=== PATIENT | female | born 1970 | race Caucasian/White ===

== ENCOUNTER 2023-09-06 13:48 | Emergency (ER) | payer SELFPAY ==
[2023-09-06 13:51] VITALS: BP 168/110; PULSE 125; RESP 22; TEMP 36.3; O2SAT 98
[2023-09-06 15:21] VITALS: BP 140/88; PULSE 103; RESP 20
--- NOTE | 2023-09-06 16:24 | DI.RAD_ITS ---
Exam(s) XR SHOULDER RT COMPLETE 2+V EXAM: XR SHOULDER RT COMPLETE 2+V CLINICAL HISTORY: pain post abduction, ER injury. TECHNIQUE: 2D digital imaging was performed of the right shoulder. Four images were obtained. AP, Grashey, and Y views were obtained. COMPARISON: No exams were available for comparison FINDINGS: BONES: No acute fracture is present. No bony destructive lesion is seen. JOINTS: No dislocation present. Degenerative changes are seen at the acromioclavicular joint. The gl enohumeral joint is well maintained. SOFT TISSUE: Well corticated osseous densities are seen adjacent to the acromioclavicular joint. The se are old. IMPRESSION: No acute fracture or dislocation. DATA REPOSITORY: RADIATION DOSE DELIVERED:
[2023-09-06] MEDS: Acetaminophen 500 MG TAB 1000 MG PO (16:50)
[2023-09-06] MEDS: Ketorolac 30 MG/ML VIAL IM (16:50)
--- NOTE | 2023-09-06 17:05 | W.ED.GENAD ---
Discharge Plan Disposition Patient Disposition: Home Condition: Stable Discharge Details Clinical Impression: Rotator cuff injury, Injury of right shoulder Primary Care Provider: Unknown,Unknown ED Provider: Zac Diego Home Meds and New Rx's Prescriptions: Continued duloxetine [Cymbalta] 20 mg capsule,delayed release(DR/EC) 40 mg PO DAILY lisdexamfetamine [Vyvanse] 50 mg capsule 50 mg PO DAILY trazodone 50 mg tablet 50 mg PO DAILY Rexulti 1 mg tablet 1 mg PO DAILY Discharge Instructions Instructions: Rotator cuff injury Additional Instructions: Please take acetaminophen (tylenol) - 650mg every 6 hours by mouth as needed for pain. Use sling over the next 1 to 2 weeks. Be sure to remove your arm from sling and perform pendulum exercises as discussed twice today. Please contact orthopedics to arrange follow-up. Return to the ER immediately for any worsening or new concerning symptoms. Stand Alone Forms: Work Release Referrals: [facility] [Provider Group] Discharge Data Discharge Date/Time-TO BE ENTERED AT DEPARTURE: 09/06/23 17:33 HPI General Mode of arrival: ambulatory. Date/Time Provider Initiated Documentation: 09/06/23 14:37. Limitations to Documentation: no limitations. Information obtained by: patient. HPI Narrative: 53-year-old female presents with right shoulder pain after falling forward and catching herself with her arm in a posterior hyperextended position. Pain is moderate and worse with any movement of the arm. No associated numbness or tingling. No other injury. Related Data Home Medications ?Medication ?Instructions ?Recorded ?Confirmed brexpiprazole 1 mg tablet (Rexulti) 1 mg PO DAILY 09/06/23 09/06/23 duloxetine 20 mg capsule,delayed 40 mg PO DAILY 09/06/23 09/06/23 release (Cymbalta) lisdexamfetamine 50 mg capsule 50 mg PO DAILY 09/06/23 09/06/23 (Vyvanse) trazodone 50 mg tablet 50 mg PO DAILY 09/06/23 09/06/23 Allergies Allergy/AdvReac Type Severity Reaction Status Date / Time perphenazine (From Trilafon) Allergy Severe Anaphylaxis Verified 09/06/23 13:59 prochlorperazine (From Allergy Severe Anaphylaxis Verified 09/06/23 13:59 Compazine) General Stated Complaint: Orthopedic JOHN: 4 Review of Systems Musculoskeletal Musculoskeletal: Reports as per HPI Exam Resp Auscultation: clear to auscultation bilaterally, no rales, no rhonchi and no wheezes Cardio Rate: regular rate and not tachycardic Rhythm: regular rhythm Back/Spine/Pelvis Cervical Spine: cervical ROM normal, No cervical spinal tenderness and No step off deformity Thoracic/Lumbar Spine: No thoracic spinal tenderness Neuro General: patient alert, patient awake, patient oriented x3 and tone normal Other: Distal right upper extremity sensation and motor intact Extrem General: no edema Right upper extremity: no joint enlargement, shoulder/upper arm Details: tenderness (Posterior shoulder) and abnormal ROM Details: pain with active ROM Details: in ABduction and in extension and elbow/forearm Details: normal to inspection Course Vital Signs Vital signs: Vital Signs Temperature 36.3 C L 09/06/23 13:51 Pulse 125 H 09/06/23 13:51 Respiratory Rate 22 09/06/23 13:51 Blood Pressure 168/110 H 09/06/23 13:51 Pulse Oximetry 98 09/06/23 13:51 Temperature 36.3 C L 09/06/23 13:51 Temperature Source Temporal Artery Scan 09/06/23 13:51 Pulse 103 H 09/06/23 15:21 Respiratory Rate 20 09/06/23 15:21 Respiratory Effort Normal 09/06/23 13:57 Blood Pressure 140/88 09/06/23 15:21 Blood Pressure Mean 105 09/06/23 15:21 Blood Pressure Position Sitting 09/06/23 13:51 Pulse Oximetry 98 09/06/23 13:51 Oxygen Delivery Method Room Air 09/06/23 13:51 Oxygen Flow Rate 0 09/06/23 13:51 Pain Level 8 09/06/23 16:50 Medical Decision Making 53-year-old female presents with right shoulder pain after falling forward and catching herself with her arm in a posterior hyperextended position. Considered fracture. X-ray of the shoulder was not reviewed and interpreted by radiology: No acute fracture or dislocation. Suspect rotator cuff tear. Patient was given Tylenol and Toradol IM. Plan for sling and will have her followup with orthopedics. Quality:SDOH Health Related Social Needs: No Data to Display PFSH All Active Problems (Updated 09/06/23 @ 17:16 by Zac Diego MD) Injury of right shoulder (Acute) Rotator cuff injury (Acute) Social History Smoking/Tobacco Use Status: Never Smoking risk assessment performed?: Yes Alcohol Intake: never Drug use: Never Substance use type: does not use
== END 2023-09-06 17:33 | disposition home or self-care (01) ==
PROVIDERS: Emergency Provider Student in an Organized Health Care Education/Training Program
DX: S46.091A Other injury of muscle(s) and tendon(s) of the rotator cuff of right shoulder, initial encounter (principal); W10.9XXA Fall (on) (from) unspecified stairs and steps, initial encounter
CPT/HCPCS: 96374; 99284; 73030; 99283; J1885

== ENCOUNTER 2023-11-09 01:10 | Outpatient (CLI) | payer OTHER, SELFPAY ==
--- NOTE | 2023-11-09 07:43 | DI.MRI_ITS ---
Exam(s) MR UPPER JOINT RT WO EXAM: MR UPPER JOINT RT WO CLINICAL HISTORY: R SHOULDER INJURY, ? RTC TEAR,M75.101. TECHNIQUE: Multiplanar multisequence MRI was performed. COMPARISON: Plain films 06 September 2023 FINDINGS: BONES: There is some increased signal in the anterolateral aspect of the humeral head which could rep resent a bone contusion versus degenerative changes. Spurring is noted on plain films. JOINTS:The acromioclavicular joint shows moderate spurring. The glenohumeral joint shows a small juan daniel unt of fluid. TENDONS: Supraspinatus: Abnormal thickening of the supraspinatus tendon. Focal full-thickness tear seen anter iorly. Infraspinatus: Unremarkable. Subscapularis: Unremarkable. Teres Minor: Unremarkable. Biceps and Howe: Not well seen. Fluid seen extending along tendon. MUSCLES: Unremarkable. GLENOID LABRUM: Unremarkable on this noncontrast examination. SOFT TISSUES: Unremarkable. OTHER: Subacromial and subdeltoid bursae do not show significant fluid. Small amount of fluid in hairston b coracoid region.. IMPRESSION: Full-thickness tear of the anterior supraspinatus tendon. Biceps tendon is not well seen. Suspect tear. DATA REPOSITORY:
== END 2023-11-09 01:30 ==
LOC: DI 01:10
PROVIDERS: Visit Provider Student in an Organized Health Care Education/Training Program
DX: M75.121 Complete rotator cuff tear or rupture of right shoulder, not specified as traumatic (principal)
CPT/HCPCS: 73221

== ENCOUNTER 2023-11-25 11:55 | Day surgery (SDC) | payer OTHER, SELFPAY ==
[2023-11-25] VITALS (20 sets, daily range): BP systolic 105–142; BP diastolic 55–117; PULSE 65–90; RESP 7–131; TEMP 36.1–36.8; O2SAT 87–98; BMI 48.6
--- NOTE | 2023-11-25 07:15 | PDOC.DSDIS_ITS ---
Date of service: 11/25/23 Time of Service: 15:00 Discharge Plan Disposition Patient Disposition: Home Condition: Stable Discharge Details Attending Provider: Constantine Reese Primary Care Provider: Patricia Mckay Home Meds and New Rx's Prescriptions: New tramadol 50 mg tablet 50 mg PO Q8H PRN (Reason: severe pain) Qty: 9 0RF Continued metoprolol tartrate 25 mg tablet 12.5 mg PO BID duloxetine [Cymbalta] 20 mg capsule,delayed release(DR/EC) 40 mg PO DAILY lisdexamfetamine [Vyvanse] 50 mg capsule 50 mg PO DAILY Rexulti 1 mg tablet 1 mg PO DAILY ondansetron 4 mg tablet,disintegrating 4 mg PO DIRECTED Patient Comments: dissolve 1 tablet on top of the tongue every 8 hours if needed for nausea and vomiting Discharge Instructions Additional Instructions: Surgery: Right shoulder arthroscopy with rotator cuff repair (subscapularis & supraspinatus, extensive debridement, subacromial decompression, and open biceps tenodesis (proximal rupture repair). Activity: For 6 weeks, you should keep your arm at your side in a neutral position at all times except for physical therapy. Do not try to lift or raise your arm using your own muscles. You should use the sling whenever you are out of the house. At home it is best to remove the sling and rest the arm on a pi llow at your side or support the operative side with your other hand. You may allow the arm to dangle at your side. A physical therapy prescription will be sent electronically to begin in about 3 weeks. CONSERVATIVE protocol. Prescriptions: Avoid NSAIDs as best possible given history gastric bypass surgery Tramadol 50 mg take 1 every 8 hours as needed for severe pain You may use [id number] Tylenol (acetaminophen) as needed for mild to moderate pain. These pain medications may be taken all at once or in different combinations as needed. Also, recommend Colace (docusate) as a stool softener as surgery and pain medicine cause constipation. Dressings: Remove shoulder bandage after 3 days. Leave the sticky Steri-Strips in place until they fall off or remove them after you shower. Cover the incisions with Band-Aids or leave them open to air. The biceps bandage (inside upper arm) is glued on separately. You may leave this one on a few days longer if it is difficult to remove. There is also glue underneath this bandage that can be left in place until it peels off. You may shower after 5 days. Follow-up: 10-[address] Reese You may take off the leg compression stockings this evening at home. You may also leave them on a few days longer if you have a history of leg swelling or edema. Let us know right away if you develop any redness, drainage, fevers, chest pain, or trouble breathing. Do not drink alcohol or drive for at least 24 hours after anesthesia. Please call the office during business hours with any questions or concerns. Stand Alone Forms: Anesthesia Discharge Inst., Anes.Nerve Block Instructions, Dimas Ortiz (DSU) Referrals: Constantine Reese MD [ [facility]YSICIAN] - 12/08/23 2:00 pm Discharge Orders Discharge Orders: Discharge Order (Routine); Ordered 11/25/23 Ordered By: Staci Matos DS: Diagnosis Discharge Diagnosis (1) Right rotator cuff tear: Status: Acute (2) Rupture of right proximal biceps tendon: Status: Acute
--- NOTE | 2023-11-25 12:25 | ROE_ITS ---
Date of service: 11/25/23 Time of Service: 13:30 Operative Note Operative Note DATE OF PROCEDURE: 11/25/23 PRE-OP DIAGNOSIS: Right: 1. Rotator cuff tear 2. Proximal biceps rupture 3. Bursitis POST-OP DIAGNOSIS: same PROCEDURE: Right: 1. Rotator cuff repair, CPT# 33918. This involved repair of the subscapularis and supraspinatus using anchors and sutures to reattach the rotator cuff back to the footprint of the lesser and greater tuberosity. 2. Open biceps tenodesis, CPT# 95454. This involved reattaching the ruptured long head of the biceps tendon to the proximal humerus in the sub-pectoral area of the bicipital groove at the correct tension. 3. Extensive debridement, CPT# 85789. This involved using arthroscopic hand instruments, power instruments, and radiofrequency instruments to debride significant biceps tendon intra-articular remnant, anterior labral fraying and small parameniscal cyst, release anterior capsular adhesions and M GH L, mild lesser and bicipital groove chondromalacia, and rotator interval synovitis working within the glenohumeral joint anteriorly, superiorly and posteriorly. 4. Subacromial decompression with partial acromioplasty, CPT# 66901. This in volved using arthroscopic power instruments and a radiofrequency wand to complete a bursectomy and smooth the undersurface of the acromion. The assistant inventory manager was medically required in order to help assist in techniques above, which require positioning the arm, holding the arthroscope, and manipulating multiple instruments and sutures at the same time. This cannot be done without the help of an experienced assistant inventory manager. SURGEON: Constantine Reese ROLLER MAKER: Staci Matos ANESTHESIA TYPE: Local By Surgeon, General LMA/ETT and Primary Nerve Block Refer to Anesthesia Record ESTIMATED BLOOD LOSS: 30 PATHOLOGY: none sent COMPLICATIONS: None Patient was transported to: PACU Patient's condition: stable Implants: Arthrex: 4.75mm SwiveLocks x 1, 5.5mm SwiveLocks x 1, and unicortical Proximal Biceps Tenodesis Button Indications: The patient was diagnosed with the above conditions and appropriately indicated for surgical intervention. Please see complete medical record for details. Findings: Exam under anesthesia: Full range of motion, palpable proximal biceps rupture about the level of the pectoralis major tendon Glenohumeral joint: Significant synovitis, retracted high-grade upper half subscapularis tear, degeneration between delaminated tear layers, retracted M GH L, significant biceps tendon stump intra-articular frayed torn segment, anterior superior labral fraying with anterior small paralabral cyst decompressed indirec tly, intact articular rotator cuff Subacromial space: Significant hemorrhagic bursitis, no bursal rotator cuff defect?concealed high-grade interstitial delamination Procedure Description: In the operating room, general anesthesia was induced. Bilateral shoulders were examined. The patient was positioned in the beachchair position. All bony pro minences were well-padded. Preoperative antibiotics were administered. The shoulder was prepped and draped in the usual sterile fashion. The correct patient, procedure, and side of the procedure were all verified prior to incision. 15 cc of 0.25% bupivacaine with epinephrine was infiltrated about a 5 cm longitudinal incision at the inferior margin of the pectoralis major localized over the long head of the biceps tendon. Blunt and sharp dissection were used to expose the tendon in the bicipital groove. The tendon was brought out of the wound and kept off the skin on top of a blue towel. The correct location for sub-pectoral fixation was localized, prepped with a rasp, and then drilled with a 3.2 mm drill pin in a unicortical fashion. Using a fiber loop suture the tendon was prepped from the musculotendinous junction a few centimeters proximal. The excess tendon was amputated. The free suture ends were then passed through the unicortical button implant. The drill pin was removed and the implant was placed into the humeral intramedullary canal. The button was flipped and the sutures were tensioned bringing the tendon down to bone. Tension and fixation were then tested and found to be appropriate. The suture tails were brought on either end of the tendon and tied compressing tendon to bone. The wound was copiously irrigated with normal saline and packed with a moist monitor for later closure. Starting through the posterior portal a standard complete diagnostic arthroscopy was performed of the glenohumeral joint including inspection of the long head of the biceps, anterior and superior labrum, subscapularis tendon, supraspinatus and infraspinatus tendons, and axillary recess. The glenoid and humeral head cartilage as well as the posterior labrum were inspected from an anterior viewing portal. Significant findings and interventions noted above. Of note, there was a remarkable biceps tendon intra-articular segment torn and ruptured still present which was debrided. The subscapularis tear was lightly debrided and excursion confirmed to the lesser tuberosity without undue tension or limiting external rotation. The [facility] eval and capsulitis was released. I suture tape FiberLink was placed in the upper lateral portion in cinch mode used for traction and then in the body of the tear a FiberTape horizontal mattress was placed. All 3 tails were then secured to a SwiveLock anchor 4.75 mm in the lesser tuberosity. The repair had good reduction and stability through range of motion without restricted external rotation tested through 30 degrees. Starting through the posterior portal, the arthroscope was directed into the subacromial space. A lateral 50 yard line lateral portal was created. A combination of power instruments and a radiofrequency ablator were used to debride bursitis anteriorly, posteriorly, and laterally as well as expose and smooth bone spurring on the undersurface of the acromion. The coracoacromial ligament was partially released. The bursectomy was completed viewing laterally and working from posteriorly and the rotator cuff was thoroughly inspected with findings noted above. Significant challenges with visualization given hemorrhagic bursitis and very diminutive shoulder space despite large arm soft tissue envelope. As best possible, the high-grade supraspinatus defect was localized within the tendon concealed interstitial as it was not localized on the articular or bursal sides. It was elevated from laterally to preserve tendon length and then indirectly debrided within the tendon using mechanical and hand instruments. The self retrieving scorpion passer was used then to place a widely spaced inverted horizontal mattress FiberTape and more centrally ripstop FiberLink suture tape in cinch mode. All Fritcher suture tails were brought out laterally and attempted secured to a 4.75 mm swivel anchor. The anchor deployed somewhat poorly and it seemed to collapse and find a subchondral bone cyst. It was reasonably secured, but on more vigorous testing did not have adequate fixation strength. To avoid early repair failure, the sutures were withdrawn with the suture anchor eyelet and then the anchor itself was secured and removed in entirety. The arm was rotated and a more anterior spot laterally was cleared with a trajectory away from the bone cyst and previous suture anchor placement. The undersized punch was used again this time for an oversized anchor with better bone quality with the repair suture tails carefully ensured no undue tension and secured to a 5.5 mm SwiveLock anchor. One of the sliding repair suture was then shuttled posteriorly throug the rotator cuff adjacent to the initial suture hole and cyst and secured with SMC arthroscopic knot somewhat covering the hole and defect with this posterior rotator cuff and some small avulsed bone underneath. The repair was stable through motion and testing. The anchor was not compromised in any way by the previous suture hole. The shoulder was drained of arthroscopic fluid. All portal sites were copiously irrigated. These incisions were closed using 3-0 Monocryl in a buried fashion and then covered with Mastisol, Steri-Strips, Xeroform, dry gauze, and ABDs. The arm was copiously irrigated and then the biceps incision subcutaneous tissue was closed using 3-0 Monocryl in a buried interrupted fashion. Skin was closed using 3-0 Monocryl in a buried subcuticular running fashion. Skin glue was applied over the incision. Mastisol was applied about the incision. The incision was covered with Telfa, gauze, and covered with a Tegaderm dressing. The dressings were covered and secured with Medipore tape. The operative extremity was placed into a sling for immobilization. The patient awoke from anesthesia without complication and was transferred to the recovery room in a stable condition.
--- NOTE | 2023-11-25 12:34 | W.ANESPRE ---
General Info Date of Service Date Performed: 11/25/23 Height: 4 ft 11 in Weight: 109.3 kg Body Mass Index (BMI): 48.6 Surgical Procedure: Operation Date: 11/25/23 11:40 Proposed Procedure Side Surgeon p Shoulder Rotator Cuff Arthroscopic w/Extensive Debridement, Subacromial Decompression, Possible Open Biceps Tenodesis Right Constantine Reese MD Actual Procedure Side Surgeon p Shoulder Rotator Cuff Arthroscopic w/Extensive Debridement, Subacromial Decompression, Possible Open Biceps Tenodesis Right Constantine Reese MD Meds Allergies and Home Medications Allergies Allergy/AdvReac Type Severity Reaction Status Date / Time perphenazine (From Trilafon) Allergy Severe Anaphylaxis Verified 11/25/23 12:20 prochlorperazine (From Allergy Severe Anaphylaxis Verified 11/25/23 12:20 Compazine) Home Medication ?Medication ?Instructions ?Recorded brexpiprazole 1 mg tablet (Rexulti) 1 mg PO DAILY 09/06/23 duloxetine 20 mg capsule,delayed 40 mg PO DAILY 09/06/23 release (Cymbalta) lisdexamfetamine 50 mg capsule 50 mg PO DAILY 09/06/23 (Vyvanse) metoprolol tartrate 25 mg tablet 12.5 mg PO BID 10/06/23 ondansetron 4 mg disintegrating 4 mg PO DIRECTED 11/23/23 tablet Current Visit Medications: Current Medications Generic Name Dose Route Start Last Admin Trade Name Freq PRN Reason Stop Dose Admin Ringer's Solution 1,000 mls @ 30 mls/hr 11/25/23 06:00 IV 11/25/23 23:59 INFUSION ALEXANDER Cefazolin Sodium 3,000 mg/ 100 mls @ 200 mls/hr 11/25/23 06:00 Sodium Chloride IV 11/25/23 23:59 PREOP ALEXANDER Tranexamic Acid/Sodium Chloride 1,000 mg in 100 mls @ 600 mls/hr 11/25/23 06:00 IVPB 11/25/23 23:59 PREOP ALEXANDER IV Miscellaneous Supplies 1 each 11/25/23 06:00 Iv Access IV 11/25/23 23:59 DIRECTED ALEXANDER Oxycodone HCl 0 mg 11/25/23 07:15 Oxycodone 5 Mg Tab PO 12/25/23 07:14 Q3H PRN PRN Pain Sodium Chloride 0 ml 11/25/23 06:00 Normal Saline Flush 10 Ml Syr IV 11/25/23 23:59 PRN PRN Sodium Chloride 0 ml 11/25/23 06:00 Normal Saline 10 Ml Vial IJ 11/25/23 23:59 DIRECTED PRN Sterile Water 0 ml 11/25/23 06:00 Water,Injection,Sterile 10 Ml Vial IJ 11/25/23 23:59 DIRECTED PRN PFSH Active Problems Active Problems: Problem Status Onset Code Right rotator cuff tear Acute 09/06/23 M75.101 Medical History Medical History Anxiety ADD (attention deficit disorder) Depression Tachycardia Surgical History Surgical History Hx of section x2 Hx of exploratory laparotomy Hx of cholecystectomy History of surgery on wrist Hx of tonsillectomy Tobacco Smoking/Tobacco Use Status: Never Alcohol Alcohol Intake: current Alcohol intake frequency: a few times a month Substance Use Substance use: Never Substance use type: does not use Vital Signs and Lab Results Vital Signs Comment Vital Signs Comment:: Temp Pulse Resp BP Pulse Ox 36.1 C L 87 16 139/85 98 11/25/23 12:04 11/25/23 12:04 11/25/23 12:04 11/25/23 12:04 11/25/23 12:04 Lab Results Blood Type / Crossmatch: No Data to Display Complete Blood Count: No Data to Display Complete Metabolic Panel: No Data to Display Liver Function Panel: No Data to Display Coagulation Panel: No Data to Display Cardiac Panel: No Data to Display Arterial Blood Gas: No Data to Display Venous Blood Gas: No Data to Display Pancreas Panel: No Data to Display Thyroid Panel: No Data to Display Infectious Disease: No Data to Display Blood Cultures: No Data to Display Toxicology Panel: No Data to Display Panel: No Data to Display Anesthesia Assessment and Plan Anesthesia History Personal History: No History of Anesthesia Complications Family History: No Family History of Anesthesia Complications Exercise Tolerance Exercise Tolerance: Metabolic Equivalents>4 Pertinent Negatives Pertinent Negatives: No Symptoms of GERD, No Major Cardiovascular Symptoms or Complaints (Hx of Tachycardia at rest, started on metoprolol with improvement), No Major Pulmonary Symptoms or Complaints and No History of CVA/TIA Cardiac & Pulmonary Exam Cardiac Exam: Normal S1/S2 Heart Sounds Pulmonary Exam: Clear Bilateral Breath Sounds Implantable Cardiac Device Does patient have a Pacemaker or an ICD?: No Airway Exam Known Difficult Airway: No Mallampati Class: 1 Mouth Opening: Normal (> 3cm) Thyromental Distance: Greater than 3 cm Facial Hair: Full [place] Neck Range of Motion: Full ROM Neck Circumference: Thick Teeth Condition: Generalized Poor Dentition Airway Comments: multiple missing teeth, mainly 01/19, multiple cracked teeth. Generally poor dentition ASA Classification ASA Score: ASA 3 Emergency Case?: No NPO Status NPO Status: NPO Clears >2 hours, Solids >8 hours Status Status: Not Relevant due to Medical History Anesthesia Plan Resuscitation Status: Full Code Anesthesia Technique: General Anesthesia Airway Planned: Endotracheal Tube Monitors Used: Standard Monitors and SedLine
[2023-11-25] MEDS: Lactated Ringers 1,000 ML 30 ML IV ×2 (13:25→18:39)
--- NOTE | 2023-11-25 13:59 | W.ANESNERVE ---
Nerve Block Single Injection Procedure Date and Time Date Performed: 11/25/23 Procedure Start: 13:32 Location Where Procedure Performed Procedure Location: Day Surgery Unit Reason Performed: Postoperative Analgesia Requesting Provider: Constantine Reese Timeout Performed Timeout Performed: Yes Monitoring Used ECG, Blood Pressure, SpO2 and See EMR for corresponding vital signs Sterility Sterility: Hand Hygiene, Surgical Cap, Surgical Mask, Sterile Gloves, Eye Protection and Chlorhexidine Sedation Given During Procedure Sedation Given (Indicate Dose Given): Versed IV Dose:: 5mg IVP Patient Mental Status Patient Mental Status: Sedate with meaningful communication Nerve Block 1st Nerve Block: Laterality: Right Block Type: Interscalene Ultrasound Image Saved?: Yes Needle / Catheter Used: 80mm SonoPlex II Local Anesthetic Bolus (Indicate Dose Given): Lidocaine used for local infiltration of skin, Bupivacaine 0.5% Dose:: 0.5%/10cc (50mg) and Exparel Dose:: 1.3%/10cc (133mg) Additives (Indicate Dose Given): Epinephrine to make 1:200,000 (5mcg/ml) Dose:: 100mcg and Decadron Dose:: 10mg PF Ultrasound: Sterile probe cover and gel used Nerve Stimulator: Not Used Paresthesia: None Procedure Tolerated: No Complications and Patient tolerated well Procedure Outcome: Successful Performed By: Tomer Almeida
[2023-11-25] MEDS: ceFAZolin 3,000 MG in Normal Saline 100 ML 200 MG IV (14:03)
[2023-11-25] MEDS: TRANEXAMIC ACID/SOD. CHL. 1,000 MG/100 ML BAG 600 MG IVPB (14:16)
[2023-11-25] MEDS: Bupivacaine 0.25% Pres-Free W/EPI 30 ML VIAL (15:13)
[2023-11-25] MEDS: EPINEPHrine 10 MG/10 ML ML (17:40)
--- NOTE | 2023-11-25 17:57 | W.ANESPOSTOP ---
Postoperative Evaluation Date, Time and Location Date Performed: 11/25/23 Time Performed: 17:57 Patient Location: PACU Vital Signs Most Recent Imported Vital Signs: Most Recent Vital Signs Temp Pulse Resp BP Pulse Ox 36.4 C L 73 17 126/66 93 11/25/23 17:42 11/25/23 17:51 11/25/23 17:51 11/25/23 17:51 11/25/23 17:51 Pain Score Most Recent Pain Score: Most Recent Pain Score Pain Level 0 11/25/23 13:00 Assessment Mental Status: Arousable with meaningful communication Airway and Respiratory Function: Patent airway with normal (patient baseline) respiratory exam Cardiovascular Function: Hemodynamically Stable Hydration Status: Adequately Hydrated Nausea & Vomiting: No Nausea or Vomiting Pain: Pt. Denies Any Pain Peripheral Nerve Block: Patient did not receive a nerve block
--- NOTE | 2023-11-25 18:48 | W.PC.ACHO ---
Registration Status: Primary Language: Preferred Language: Medical / Surgical History (Last Reviewed 11/25/23 @ 12:12 by Chyna Amador RN) Anxiety ADD (attention deficit disorder) Depression Tachycardia (Last Reviewed 11/25/23 @ 12:12 by Chyna Amador RN) Hx of section Hx of exploratory laparotomy Hx of cholecystectomy History of surgery on wrist Hx of tonsillectomy Most Recent Vital Signs Temperature 36.6 C 11/25/23 18:15 Temperature Source Temporal Artery Scan 11/25/23 13:00 Pulse 69 11/25/23 18:15 Pulse Rhythm Regular 11/25/23 12:04 Pulse 72 11/25/23 18:15 Respiratory Rate 7 L 11/25/23 18:15 Respiratory Depth Normal 11/25/23 12:04 Blood Pressure 142/78 H 11/25/23 18:15 Blood Pressure Mean 96 11/25/23 18:15 Blood Pressure Position Left Lateral 11/25/23 13:00 Pulse Oximetry 91 L 11/25/23 18:15 Respiratory End-tidal CO2 21 11/25/23 18:15 Oxygen Delivery Method Nasal Cannula 11/25/23 18:15 Oxygen Flow Rate 2 11/25/23 18:15 Pain Level 0 11/25/23 18:15 Comment Pt transferred to OR via stretcher by Jaqueline CARVER and Moni ROMERO at 1351 Pt denied tinnitus and metallic taste in mouth pre and post procedure. 11/25/23 13:00 Allergies perphenazine (From Trilafon) Allergy (Severe, Verified 11/25/23 12:20) Anaphylaxis prochlorperazine (From Compazine) Allergy (Severe, Verified 11/25/23 12:20) Anaphylaxis Active Medications Generic Name Dose Route Start Last Admin Trade Name Freq PRN Reason Stop Dose Admin Ringer's Solution 1,000 mls @ 30 mls/hr 11/25/23 06:00 11/25/23 18:39 IV 11/25/23 23:59 30 mls/hr INFUSION ALEXANDER Administration Cefazolin Sodium 3,000 mg/ 100 mls @ 200 mls/hr 11/25/23 06:00 11/25/23 14:33 Sodium Chloride IV 11/25/23 23:59 Infused PREOP ALEXANDER Infusion Tranexamic Acid/Sodium Chloride 1,000 mg in 100 mls @ 600 mls/hr 11/25/23 06:00 11/25/23 14:26 IVPB 11/25/23 23:59 Infused PREOP ALEXANDER Infusion IV IV Catheter Type [Left Peripheral IV Antecubital] IV Catheter Gauge [Left 20 Antecubital] Diet Orders Category Date Time Status Regular/Normal [DIET] Nutrition 11/25/23 Dinner Active [id number] Documentation POC Urine Test Start: 11/25/23 12:20 Freq: Status: Active Protocol: Activity Type Activity Date Activity User E-sign Co-sign Detail Recorded Client Recorded Date Recorded By Document 11/25/23 12:59 YOJANA [id number] 11/25/23 12:59 YOJANA Intake and Output - 24 Hour Total 11/16/23 14:54 thru 11/25/23 18:39 Intake Total 1038 Balance 1038 Weight 109.3 kg Intake: IV 1038 Other: Emesis Description None v v v v v v v v v Sending and/or Receiving Nurses: Please use comment section below to note any information pertinent to the patient hand-off not included above. Information / Comments: Report taken from PACU Nurse Jaqueline, patient is post op right shoulder arthoscopy rotator cuff repair, open biceps tendonid. Had general anesthesia w/ ETT., Pt is fully awake transferred to bed self. CSMT is wnl. All questions asked. Report received from:
== END 2023-11-25 20:00 | disposition home or self-care (01) ==
LOC: SUR 18:14 → MS 18:53
PROVIDERS: PCP Family Medicine; Visit Provider Student in an Organized Health Care Education/Training Program
PROC: (CPT 29827; principal; 2023-11-25 13:15)
DX: M75.101 Unspecified rotator cuff tear or rupture of right shoulder, not specified as traumatic (principal); S46.211A Strain of muscle, fascia and tendon of other parts of biceps, right arm, initial encounter; X58.XXXA Exposure to other specified factors, initial encounter; M75.51 Bursitis of right shoulder
CPT/HCPCS: 23430; 29827; 29823; 29826; 76942; C9290; J0171; J0665; J0690; J1100; J1885; J2250; J2371; J2405; J2704

== ENCOUNTER 2023-11-28 02:47 | Emergency (ER) | payer OTHER, SELFPAY ==
--- NOTE | 2023-11-28 02:45 | RT.EKG_ITS ---
APPROVED REPORT Exam: Resting ECG Reason for Exam: chest pain Patient Location: E HR:87 bpm ECG Measurements Heart Rate 87 AXIS OR 148 P 56 QRSd 76 QRS 11 QT 331 T 35 QTc 399 Conclusion Sinus rhythm...normal P axis, V-rate 60- 99 Normal Electrocardiogram
[2023-11-28 02:50] VITALS: BP 126/74; PULSE 92; RESP 20; TEMP 36.6; O2SAT 96
[2023-11-28 02:54] VITALS: BP 126/74; PULSE 92; RESP 18; RESP 20; TEMP 36.6; O2SAT 96
--- NOTE | 2023-11-28 03:01 | W.ED.GENAD ---
Discharge Plan Disposition Patient Disposition: Home Condition: Good Discharge Details Clinical Impression: Chest discomfort Primary Care Provider: Patricia Mckay ED Provider: Adan Woodard Meds and New Rx's Prescriptions: Continued metoprolol tartrate 25 mg tablet 12.5 mg PO BID duloxetine [Cymbalta] 20 mg capsule,delayed release(DR/EC) 40 mg PO DAILY lisdexamfetamine [Vyvanse] 50 mg capsule 50 mg PO DAILY Rexulti 1 mg tablet 1 mg PO DAILY ondansetron 4 mg tablet,disintegrating 4 mg PO DIRECTED Patient Comments: dissolve 1 tablet on top of the tongue every 8 hours if needed for nausea and vomiting tramadol 50 mg tablet 50 mg PO Q8H PRN (Reason: severe pain) Qty: 9 0RF Discharge Instructions Instructions: Chest Pain, Adult ED Additional Instructions: You were seen for chest discomfort and shortness of breath. Your vital signs, exam, EKG, laboratory studies, CT scan are all reassuring. You should use the incentive spirometer as previously instructed unless you are active throughout the day. Follow-up with primary care as well as your postoperative orthopedic appointment. Return to ED for fever, new or worsening pain, worsening shortness of breath, other concerns. Referrals: Patricia Mckay [Primary Care Provider] - [facility] General Mode of arrival: ambulatory. Date/Time Provider Initiated Documentation: 11/28/23 03:01. Limitations to Documentation: no limitations. Information obtained by: patient and RN notes reviewed. HPI Narrative: Patient presents to the ED with complaint of chest pain/achiness that is somewhat pleuritic in nature as well as shortness of breath. Patient underwent rotator cuff/bicep tendon surgery on . She reports having some mild shortness of breath and cough on return home. She also noticed a little bit of chest discomfort. As her nerve block wore off she is now having more chest discomfort and shortness of breath. Cough is unchanged. No other URI type symptoms. No fever. No leg pain or leg swelling more so than usual. No abdominal pain or vomiting. Chest pain is not localized and feels diffuse with radiation into the back. Came in tonight that seems to be getting worse. Related Data Home Medications ?Medication ?Instructions ?Recorded ?Confirmed brexpiprazole 1 mg tablet (Rexulti) 1 mg PO DAILY 09/06/23 11/28/23 duloxetine 20 mg capsule,delayed 40 mg PO DAILY 09/06/23 11/28/23 release (Cymbalta) lisdexamfetamine 50 mg capsule 50 mg PO DAILY 09/06/23 11/28/23 (Vyvanse) metoprolol tartrate 25 mg tablet 12.5 mg PO BID 10/06/23 11/28/23 ondansetron 4 mg disintegrating 4 mg PO DIRECTED 11/23/23 11/28/23 tablet tramadol 50 mg tablet 50 mg PO Q8H PRN severe pain #9 11/25/23 11/28/23 tabs Previous Rx's ?Medication ?Instructions ?Recorded tramadol 50 mg tablet 50 mg PO Q8H PRN severe pain #9 11/25/23 tabs Allergies Allergy/AdvReac Type Severity Reaction Status Date / Time perphenazine (From Trilafon) Allergy Severe Anaphylaxis Verified 11/28/23 02:53 prochlorperazine (From Allergy Severe Anaphylaxis Verified 11/28/23 02:53 Compazine) General Stated Complaint: SOB JOHN: 3 Review of Systems Narrative: Per HPI Exam Narrative Exam Narrative: Const: Obese female in NAD. VS per triage. HEENT: NC/AT. Normal facial exam. Neck: Supple. Trachea midline. Lungs: Seems tachypneic but no increased work of breathing. Lungs are clear. Cor: RRR without murmur. Good radial pulses. GI: Soft/ND/NT. Neuro: A+O x 3. Normal speech, mentation, gait. Cranial nerves II - XII grossly intact. No gross motor or sensory deficit. Course Vital Signs Vital signs: Vital Signs Temperature 97.8 F 11/28/23 02:50 Pulse 92 H 11/28/23 02:50 Respiratory Rate 20 11/28/23 02:50 Blood Pressure 126/74 11/28/23 02:50 Pulse Oximetry 96 11/28/23 02:50 Temperature 97.8 F 11/28/23 02:54 Temperature Source Oral 11/28/23 02:54 Pulse 92 H 11/28/23 02:54 Respiratory Rate 18 11/28/23 02:54 Respiratory Effort Normal 11/28/23 02:54 Respiratory Depth Shallow 11/28/23 02:54 Respiratory Pattern Normal 11/28/23 02:54 Blood Pressure 126/74 11/28/23 02:54 Blood Pressure Position Sitting 11/28/23 02:54 Pulse Oximetry 96 11/28/23 02:54 Oxygen Delivery Method Room Air 11/28/23 02:54 Oxygen Flow Rate 0 11/28/23 02:50 Pain Level 5 11/28/23 02:54 Medical Decision Making Patient presenting to ED with complaint of diffuse chest achiness that is somewhat pleuritic. She also feels short of breath and does appear to be tachypneic but in no acute distress and with no increased work of breathing. Saturations are normal. Lungs are clear. She is 3 days postop from orthopedic surgery. Will need CT scan to evaluate for potential PE. Does not appear to be cardiac in nature. Her EKG is completely normal per my read. I will check a single troponin given the duration of discomfort being greater than 24 hours. Will give single dose of IV ketorolac for discomfort. Patient's laboratory studies are unremarkable. Her troponin is normal. CT of the chest with some right base atelectasis but no pneumonia, PE. On reevaluation patient looks much more comfortable and is not tachypneic at all. Lungs remain clear. On questioning she has not been using her incentive spirometer. Recommend using and less active. Follow-up with primary care and with postop Ortho appointment. Return precautions provided. Lab Data Lab results reviewed: Yes I reviewed the patient's lab results. ECG Data Attestation: I personally reviewed and interpreted this ECG (s) as follows: Prior ECG tracings: not available for review Interpretation: Normal PFSH All Active Problems Chest discomfort (Acute) Rupture of right proximal biceps tendon (Acute) Right rotator cuff tear (Acute 09/06/23) s/p Right shoulder arthroscopy with rotator cuff repair (subscapularis & supraspinatus, extensive debridement, subacromial decompression, and open biceps tenodesis (proximal rupture repair) 11/25/23 Medical History Anxiety ADD (attention deficit disorder) Depression Tachycardia Surgical History Hx of section x2 Hx of exploratory laparotomy Hx of cholecystectomy History of surgery on wrist Hx of tonsillectomy Social History Smoking/Tobacco Use Status: Never Smoking risk assessment performed?: Yes Alcohol Intake: current Alcohol Intake frequency: a few times a month Drug use: Never Substance use type: does not use Housing: apartment Do you feel safe at home: Yes Do you feel safe in your relationship?: Yes
[2023-11-28] MEDS: Ketorolac 15 MG/ML VIAL IVP (03:15)
[2023-11-28 03:16] LABS: Abs Immature Grans 0.02 10^3/uL (0.0-0.06); Absolute Basophil Count 0.07 10^3/uL (0.0-0.2); Absolute Eosinophil Count 0.29 10^3/uL (0.0-0.7); Absolute Lymphocyte Count 2.83 10^3/uL (1.2-3.4); Absolute Neutrophil Count 3.78 10^3/uL (1.2-6.7); Basophils % 0.9 %; Eosinophils % 3.8 %; HCT 44.2 % (36.0-46.0); HGB 14.1 g/dL (11.2-15.7); Immature Grans % 0.3 %; Lymphocytes % 36.8 %; MCH 31.1 pg (27.0-33.0); MCHC 31.9 % (32.0-36.0); MCV 97 fL (80-95); Monocytes % 9.1 %; Neutrophils % 49.1 %; Platelet Count 273 10^3/uL (130-400); RBC 4.54 10^6/uL (3.93-5.22); RDW 12.8 % (11.7-14.6); RDW-SD 45.9 fL; WBC 7.69 10^3/uL (4.4-10.8)
[2023-11-28 03:35] LABS: Anion Gap 6.6 mmol/L (3-11); BUN 20 mg/dL (7-18); CO2 31.4 mmol/L (21.0-32.0); CREATININE 0.8 mg/dL (0.55-1.02); Calcium 8.6 mg/dL (8.5-10.1); Chloride 103 mmol/L (98-107); Estimated GFR 89.15 (mL/min/1.73m2); Glucose 66 mg/dL (74-106); Potassium 3.6 mmol/L (3.5-5.1); Sodium 141 mmol/L (136-145); Troponin I 4 ng/L (<or=51)
[2023-11-28] MEDS: Normal Saline - Diluent 50 ML VIAL IJ (04:06)
[2023-11-28] MEDS: Omnipaque 350 MG/ML 100 ML BTL IJ (04:06)
--- NOTE | 2023-11-28 04:08 | DI.CT_ITS ---
Exam(s) CT CHEST PE CTA EXAM: CT CHEST PE CTA CLINICAL HISTORY: CP/SOB 3 days post op. TECHNIQUE: Imaging Protocol: Axial CT angiography was performed with multi-slice acquisition and mu lti-planar and/or 3D reconstructions. CONTRAST MATERIAL: Intravenous: Omnipaque 350 contrast volume:100 mL COMPARISON: No exams were available for comparison FINDINGS: Tracheobronchial tree: Patent where visualized. No bronchiectasis. Pulmonary parenchyma: There is an infiltrate in the right lower lobe and right middle lobe. The left lung is clear. No architectural distortion. Pulmonary Arteries: No evidence of filling defect to suggest pulmonary emboli. Mediastinum and Alvina: No dominant adenopathy or fluid collection. The esophagus is unremarkable. Visualized thyroid gland: Unremarkable. Pleura: There may be a tiny right pleural effusion. No left pleural effusion. No pneumothorax. Heart: Mildly enlarged. Minimal coronary artery calcification. No pericardial effusion. Aorta: Thoracic aorta non-dilated. No evidence of dissection. Atherosclerotic calcification is presen t. Upper abdomen: Postsurgical changes are seen in the stomach. Status post cholecystectomy. Soft tissues: There is a small amount of subcutaneous air overlying the right pectoralis muscle. No focal fluid collection is seen to suggest an abscess. This likely reflects recent surgery. Bones: Within normal limits for the patient's age. IMPRESSION: 1. No evidence of pulmonary embolism, thoracic aortic dissection or aneurysm. 2. Right middle and right lower lobe infiltrates. This may represent atelectasis or pneumonia. Plea se correlate clinically. RADIATION DOSE DELIVERED: 464.88mGy.cm Total DLP DATA REPOSITORY: All CT scans at this facility are submitted to the National Radiology Data Registry (NRDR) Dose Index Registry (DIR) with the [employer] (ACR). RADIATION OPTIMIZATION: All CT scans at this facility use at least one of these dose optimization te chniques: automated exposure control; mA and/or kV adjustment per patient size (includes targeted exa ms where dose is matched to clinical indication); or iterative reconstruction.
--- NOTE | 2023-11-28 04:57 | DI.VRAD_ITS ---
PROCEDURE INFORMATION: Exam: CTA Chest With Contrast Exam date and time: 11/28/2023 3:53 AM Age: 53 years old Clinical indication: Pain; Shortness of breath; Chest pressure; Prior surgery; Surgery date: 3-7 days post-operative; Surgery type: Rotator cuff repair; Patient HX: Cp/sob 3 days post op TECHNIQUE: Imaging protocol: Computed tomographic angiography of the chest with contrast. Exam focused on the arteries. 3D rendering (Not supervised by radiologist): MIP and/or 3D reconstructed images were created by the technologist. Radiation optimization: All CT scans at this facility use at least one of these dose optimization techniques: automated exposure control; mA and/or kV adjustment per patient size (includes targeted exams where dose is matched to clinical indication); or iterative reconstruction. Contrast material: [id number]; Contrast volume: 100 ml; Contrast route: INTRAVENOUS (IV); COMPARISON: MR UPPER JOINT RT WO 11/09/2023 12:41 PM FINDINGS: Limitations: The examination is degraded by diffuse technical artifact. The lyhtbv-in-zahvc ratio is low which limits resolution. Extensive streak artifact, created at least in part by arm positioning. Imaging at low lung volumes. Pulmonary arteries: No pulmonary embolism identified. Aorta: No thoracic aortic aneurysm or dissection. Thyroid: Thyroid gland partially excluded from view but grossly unremarkable through its visualized portion. Lungs: Atelectasis at the right lung base. No pulmonary consolidation. Pleural spaces: Trace pleural fluid on the right. No left-sided pleural effusion. No pneumothorax. Heart: Normal-sized heart. Small amount of pericardial fluid. Lymph nodes: No pathologically enlarged mediastinal or hilar lymph nodes. Diaphragm: Elevation of the right hemidiaphragm. Gallbladder and biliary ducts: Prior cholecystectomy. Stomach: Prior gastric surgery, apparently a gastric bypass procedure with gastrojejunostomy. Correlation with surgical history recommended. Bones/joints: Lower ribs partially excluded from view and incompletely evaluated. Otherwise, no acute fracture seen among the bones of the chest. Small anterior vertebral osteophytes at multiple levels. Soft tissues: Soft tissue edema and soft tissue gas in the right shoulder region and anterior chest wall, probably from the recent surgery. IMPRESSION: 1. Trace pleural fluid on the right. 2. No pulmonary embolism identified. Dictated and Authenticated by: Brett Florence MD. Ordering:BEVERLY Arellano MD
[2023-11-28 05:07] VITALS: BP 124/70; PULSE 74; RESP 18; O2SAT 96
== END 2023-11-28 05:07 | disposition home or self-care (01) ==
PROVIDERS: Emergency Provider Emergency Medicine; PCP Family Medicine
DX: R07.89 Other chest pain (principal); R06.02 Shortness of breath; Z98.890 Other specified postprocedural states; Y99.0 Civilian activity done for income or pay
CPT/HCPCS: 36415; 71275; 80048; 93005; 96374; 99285; 84484; 85025; 93010; 99283; J1885; J3490

== ENCOUNTER 2024-03-29 15:37 | Outpatient (CLI) | payer OTHER, SELFPAY ==
--- NOTE | 2024-03-29 10:00 | DI.RAD_ITS ---
Exam(s) XR SHOULDER RT COMPLETE 2+V EXAM: XR SHOULDER RT COMPLETE 2+V CLINICAL HISTORY: RIGHT SHOULDER PAIN. TECHNIQUE: 2D digital imaging was performed of the right shoulder. Two images were obtained. Grash ey and Y views were obtained. COMPARISON: CR XR SHOULDER RT COMPLETE 2+V from 09/06/2023 FINDINGS: BONES: No acute fracture is present. No bony destructive lesion is seen. There are postsurgical cruz es of a biceps tenodesis. JOINTS: No dislocation present. There are degenerative changes seen at the acromioclavicular joint. The glenohumeral joint is well maintained. SOFT TISSUE: Normal. IMPRESSION: Postsurgical and degenerative changes of the right shoulder as described above. DATA REPOSITORY: RADIATION DOSE DELIVERED:
== END 2024-03-29 15:38 | disposition home or self-care (01) ==
LOC: DIORS 15:38
PROVIDERS: PCP Family Medicine; Visit Provider Student in an Organized Health Care Education/Training Program
DX: M75.101 Unspecified rotator cuff tear or rupture of right shoulder, not specified as traumatic (principal); Z98.890 Other specified postprocedural states
CPT/HCPCS: 73030

== ENCOUNTER 2024-04-18 02:28 | Outpatient (CLI) | payer OTHER, SELFPAY ==
--- NOTE | 2024-04-18 07:30 | DI.MRI_ITS ---
Exam(s) MR UPPER JOINT RT WO EXAM: MR UPPER JOINT RT WO CLINICAL HISTORY: R SHOULDER PAIN, S/P RTC REPAIR 11/22,RT ROTATOR CUFF TEAR,M75.101 TECHNIQUE: Multiplanar multisequence MRI of the shoulder was performed. COMPARISON: MR MR UPPER JOINT RT WO from 11/09/2023 CR XR SHOULDER RT COMPLETE 2+V from 03/29/2024 FINDINGS: MARROW:Compared to the MRI of October 2023 there has been interval rotator cuff surgery and biceps tenodesis. GLENOHUMERAL JOINT: There is an element of upward subluxation of the humeral head in the osseous michaela oid fossa again noted. Small amount of increased joint fluid and there is synovial thickening in the inferior recess now evident. There are no obvious loose intra-articular bodies. Some mild degenera tive changes are noted with a small osteophyte on the inferior articular surface of the humeral head. However, there does not appear to be significant cartilage loss over the articular surfaces of the humeral head and osseous glenoid and there are no degenerative subarticular cysts in the osseous michaela oid. ROTATOR CUFF MECHANISM: AC JOINT/ACROMIUM: There does not appear to be significant widening of the AC joint but there are sig nificant degenerative changes in the AC joint and there is a E partially septated ganglia on-type cys t extending off the superior aspect of this articulation now evident. This fluid appears continuous with fluid in the subarachnoid bursa space, this continuity best seen on the sagittal fat sat T2 imag es (image 17) there is some bone edema evident in the a chromium and lateral clavicle.. There is no evidence of os acromiale. Supraspinatus: There is signal abnormality in the rotator cuff supraspinatus tendon. There appears t o be tearing of the repair above and medial to the greater tuberosity and fluid in the overlying suba cromial bursa. There is no retraction. Infraspinatus: There also appears to be at least partial tearing of the infraspinatus tendon. Teres Minor: Intact. No evidence of tear nor muscle atrophy. Subscapularis/anterior cuff: There is thinning of the anterior cuff and signal abnormality consistent with partial tearing. BICEPS TENDON: There is a tenodesis site in the proximal humeral diaphysis. LABRUM: No obvious tear of the superior labrum. Surface irregularity of the posterior labrum now olimpia dent. Anterior labrum appears intact as does the inferior labrum. No evidence of paralabral cysts. IMPRESSION: 1. Compared to the prior MRI scan of 11/09/2023 there has been interval rotator cuff surgery and prox imal humerus biceps tenodesis site creation. 2. There is now significant signal abnormality in the supraspinatus, infraspinatus, and subscapularis consistent with at least partial tearing of these structures. There is also suggestion of full-thic kness tearing of the supraspinatus above and medial to the greater tuberosity. There is no retractio n. There is, however, fluid in the subacromial-subdeltoid bursa. 3. The fluid in the subacromial bursa is continuous with fluid extending through the AC joint and int o the supra articular level of this joint. 4. Small joint effusion and some synovial thickening now evident in the inferior recess. DATA REPOSITORY:
== END 2024-04-18 02:48 ==
LOC: DI 02:28
PROVIDERS: PCP Family Medicine; Visit Provider Student in an Organized Health Care Education/Training Program
DX: M75.111 Incomplete rotator cuff tear or rupture of right shoulder, not specified as traumatic (principal)
CPT/HCPCS: 73221

== ENCOUNTER 2024-04-26 17:44 | Outpatient (CLI) | payer MEDICAID, SELFPAY ==
[2024-04-26 14:46] LABS: Abs Immature Grans 0.01 10^3/uL (0.0-0.06); Absolute Basophil Count 0.03 10^3/uL (0.0-0.2); Absolute Eosinophil Count 0.22 10^3/uL (0.0-0.7); Absolute Monocyte Count 0.51 10^3/uL (0.1-0.8); Absolute Neutrophil Count 3.69 10^3/uL (1.2-6.7); Basophils % 0.5 %; Eosinophils % 3.3 %; HCT 41.4 % (36.0-46.0); HGB 13.7 g/dL (11.2-15.7); Immature Grans % 0.2 %; MCH 30.7 pg (27.0-33.0); MCHC 33.1 % (32.0-36.0); MCV 93 fL (80-95); MPV 9.6 fL (8.0-11.0); Monocytes % 7.7 %; Neutrophils % 55.3 %; Platelet Count 293 10^3/uL (130-400); RBC 4.46 10^6/uL (3.93-5.22); RDW 12.8 % (11.7-14.6); RDW-SD 43.8 fL; WBC 6.66 10^3/uL (4.4-10.8)
[2024-04-26 14:49] LABS: ESR 8 mm/hr (0-30)
[2024-04-26 15:05] LABS: C-Reactive Protein < 0.50 mg/dL (<or=0.5)
== END 2024-04-26 17:45 | disposition home or self-care (01) ==
LOC: LBO 17:45
PROVIDERS: PCP Family Medicine; Visit Provider Student in an Organized Health Care Education/Training Program
DX: M75.101 Unspecified rotator cuff tear or rupture of right shoulder, not specified as traumatic (principal)
CPT/HCPCS: 36415; 85652; 85025; 86140

== ENCOUNTER 2024-10-20 00:29 | Outpatient (CLI) | payer MEDICAID, SELFPAY ==
[2024-10-20 11:43] LABS: HCT 43.3 % (36.0-46.0); HGB 13.9 g/dL (11.2-15.7); MCH 30.0 pg (27.0-33.0); MCHC 32.1 % (32.0-36.0); MCV 93 fL (80-95); MPV 9.4 fL (8.0-11.0); Platelet Count 352 10^3/uL (130-400); RBC 4.64 10^6/uL (3.93-5.22); RDW 13.2 % (11.7-14.6); RDW-SD 45.1 fL; WBC 8.00 10^3/uL (4.4-10.8)
[2024-10-20 12:11] LABS: Anion Gap 8.9 mmol/L (3-11); BUN 13 mg/dL (7-18); CO2 29.1 mmol/L (21.0-32.0); Calcium 9.0 mg/dL (8.5-10.1); Chloride 105 mmol/L (98-107); Estimated GFR 104.00 (mL/min/1.73m2); Glucose 109 mg/dL (74-106); Potassium 4.0 mmol/L (3.5-5.1); Sodium 143 mmol/L (136-145)
[2024-10-20 12:26] LABS: Hemoglobin A1C 5.2 % (<5.7)
== END 2024-10-20 00:30 | disposition home or self-care (01) ==
LOC: LBO 00:29
PROVIDERS: Physician Assistant; PCP Family Medicine; Visit Provider Student in an Organized Health Care Education/Training Program
DX: M17.12 Unilateral primary osteoarthritis, left knee (principal); Z01.818 Encounter for other preprocedural examination; E66.01 Morbid (severe) obesity due to excess calories
CPT/HCPCS: 36415; 80048; 85027; 82985; 83036

== ENCOUNTER 2024-10-20 11:30 | Outpatient (CLI) | payer MEDICAID, SELFPAY ==
--- NOTE | 2024-10-20 10:00 | DI.RAD_ITS ---
Exam(s) XR STANDING ALIGNMENT EXAM: XR STANDING ALIGNMENT CLINICAL HISTORY: PRE OP L TKA. TECHNIQUE: 2D digital imaging was performed. COMPARISON: No exams were available for comparison FINDINGS: 3 views There is qiin-rf-bdtk narrowing of the medial compartments of both knees, slightly worse on the right side where there also marginal osteophytes off the medial compartment. There is relative preservation of height of the lateral compartments although there are intra-articular osteophytes in the lateral compartment of the right knee noted; less so in the left knee. There is bilateral Varus deformity of the knees, slightly more prominent on the right side. Hips appear unremarkable as do the talar domes. There is some benign-appearing thickening of the medial cortex of the mid left femur noted. IMPRESSION: Advanced degenerative changes both knees as described above. 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 Incidental finding in the medial cortex of the mid left femur is described above. DATA REPOSITORY: RADIATION DOSE DELIVERED:
--- NOTE | 2024-10-20 10:00 | DI.RAD_ITS ---
Exam(s) XR KNEE LT 1V EXAM: XR KNEE LT 1V CLINICAL HISTORY: PRE OP L TKA. TECHNIQUE: 2D digital imaging was performed. COMPARISON: CR XR STANDING ALIGNMENT from 10/20/2024 FINDINGS: Single lateral view of the left knee: There is advanced osteoarthritic degenerative change evident in the medial patellofemoral compartments. No fractures. No joint effusion. No osseous lesions. IMPRESSION: Advanced degenerative changes. DATA REPOSITORY: RADIATION DOSE DELIVERED:
== END 2024-10-20 11:31 | disposition home or self-care (01) ==
LOC: DIORS 11:30
PROVIDERS: PCP Family Medicine; Visit Provider Physician Assistant
DX: M17.12 Unilateral primary osteoarthritis, left knee (principal)
CPT/HCPCS: 73560; 77073

== ENCOUNTER 2024-10-25 06:47 | Day surgery (SDC) | payer MEDICAID, SELFPAY ==
[2024-10-25] VITALS (23 sets, daily range): BP systolic 87–145; BP diastolic 49–76; PULSE 74–96; RESP 9–24; TEMP 36.4–36.9; O2SAT 91–99; BMI 50.6
--- NOTE | 2024-10-25 07:10 | PDOC.DSDIS_ITS ---
Date of service: 10/25/24 Discharge Plan Disposition Patient Disposition: Home Condition: Good Discharge Details Reason For Visit: Left knee DJD Attending Provider: Ousmane To Primary Care Provider: Patricia Mckay Home Meds and New Rx's Prescriptions: New celecoxib [Celebrex] 200 mg capsule 200 mg PO BID PRNQty: 60 0RF Rx Instructions: Take one tablet twice daily for pain and inflammation aspirin 81 mg tablet,delayed release (DR/EC) 81 mg PO BID 30 Days Qty: 60 0RF acetaminophen 500 mg tablet 1,000 mg PO Q8H PRN Qty: 90 0RF Rx Instructions: Take two tablets up to every 8 hours as needed for pain dexamethasone 4 mg tablet 4 mg PO DAILY Qty: 2 0RF Rx Instructions: Take one tablet once daily for two days docusate sodium [Colace] 100 mg capsule 100 mg PO BID Qty: 28 0RF gabapentin 300 mg capsule 300 mg PO QHS Qty: 14 0RF Rx Instructions: Take one tablet at bedtime oxycodone 5 mg tablet 5 mg PO Q4H PRNQty: 18 0RF Rx Instructions: Take one tablet up to every 4 hours as needed for severe postoperative pain Continued albuterol sulfate 90 mcg/actuation HFA aerosol inhaler 2 puff inhalation Q6H PRN cholecalciferol (vitamin D3) 50 mcg (2,000 unit) capsule 50 mcg PO DAILY cyanocobalamin (vitamin B-12) 50 mcg tablet 50 mcg PO DAILY diclofenac sodium [Arthritis Pain (diclofenac)] 1 % gel 2 g topical QID Rx Instructions: apply to single elbow, wrist or hand; for hand includes palm/fingers/back of hand glucose [Dex4 Glucose] 4 gram tablet,chewable 4 g PO Q15M PRN Rx Instructions: until symptoms of low blood sugar are controlled omeprazole 40 mg capsule,delayed release(DR/EC) 40 mg PO DAILY PRN calcium citrate-vitamin D3 [Calcium Citrate + D] 315 mg-5 mcg (200 unit) tablet 1 tab PO BID enalapril maleate 5 mg tablet 5 mg PO DAILY hydroxyzine HCl 50 mg tablet 50 mg PO BID lisdexamfetamine 60 mg capsule 60 mg PO DAILY trazodone 100 mg tablet 100 mg PO DAILY zolpidem 10 mg tablet 10 mg PO QHS PRN memantine [Namenda] 10 mg tablet 10 mg PO QPM duloxetine 60 mg capsule,delayed release(DR/EC) 120 mg PO DAILY ondansetron 4 mg tablet,disintegrating 4 mg PO DIRECTED Patient Comments: dissolve 1 tablet on top of the tongue every 8 hours if needed for nausea and vomiting Discontinued celecoxib [Celebrex] 200 mg capsule 200 mg PO BID Qty: 60 1RF Rx Instructions: TAKE 1 TABLET BY MOUTH TWICE DAILY Discharge Instructions Additional Instructions: Total Knee Discharge Instructions Activity: The most important activity is to walk and to work on gentle motion (both flexion and extension). You should try to take short walks a few times a day. It is important that when resting you work on keeping the knee straight. Avoid putting a pillow behind the knee as this will encourage flexion. Work on range of motion exercises as provided by Physical Therapy. - Start outpatient physical therapy within 2 weeks. - You should wear the TETE hose on both legs for 2 weeks. You may remove these at night. You may also use any compression sock in place of the TETE hose. - Utilize [employer] to review exercises, see videos on exercises and obtain basic information pertaining to your surgery and your recovery. Dressing: Remove the Estrada wrap by 2 days after your surgery and put on the TETE stocking given to you from the hospital. Keep the surgical dressing (underneath the ESTRADA wrap) in place for at least one week. After the first week it may be removed and replaced with light gauze and tape or nothing. The wound and dressing may get wet after 3 days but avoid soaking the dressing or otherwise it will need to be changed. Many people prefer covering the dressing with cling wrap (saran wrap) to minimize it from getting soaked. If it gets wet, just pat dry. If it starts to peel off then it will need to be changed. Medications: - You should take Tylenol and anti-inflammatory Celebrex as your primary pain co ntrol medications. If the Celebrex is too expensive or not covered, please call the office for another alternative (Advil/Ibuprofen or Naproxen/Aleve) - You have been prescribed a stronger pain medication Oxycodone for breakthrough pain, take as needed as prescribed. - You take a stomach acid reduction agent Omeprazole at baseline - continue with this medication to help reduce stomach acid and reflux. - You have been prescribed Gabapentin to take at night for restlessness and nerve pain. - You will be taking Aspirin 81mg twice a day for DVT prevention unless instructed otherwise. - You have also been prescribed Decadron to take to control post-operative nausea and pain. You will start this tomorrow. - If you have constipation you should take Colace (which has been prescribed) or Miralax (which is available [id number]). It takes most people 3-4 days to have a bowel movement. Follow-up: 2 weeks If you have any acute concerns or questions, please do not hesitate to contact the office at [phone]. You may contact Dr. To with any questions after hours through the hospital at [phone] or on his cell phone at [phone]. Referrals: Ousmane To MD [ [facility] STAFF PHYSICIAN, Orthopaedic Surgical] Equipment/Supplies: Walker Activity:: Elevate Remove Dressings/Wound Care:: Do Not Remove Shower/Bathe:: Cover Diet:: As Tolerated Discharge Orders Discharge Orders: Discharge Order (Routine); Ordered 10/25/24 Ordered By: Essie Carr
--- NOTE | 2024-10-25 07:21 | W.ANESPRE ---
General Info Date of Service Date Performed: 10/25/24 Height: 4 ft 11 in Weight: 113.7 kg Body Mass Index (BMI): 50.6 Surgical Procedure: Operation Date: 10/25/24 09:10 Proposed Procedure Side Surgeon p Knee Total Arthroplasty w/OrthAlign Left Ousmane To MD Meds Allergies and Home Medications Allergies Allergy/AdvReac Type Severity Reaction Status Date / Time perphenazine (From Trilafon) Allergy Severe Anaphylaxis Verified 10/25/24 07:46 prochlorperazine (From Allergy Severe Anaphylaxis Verified 10/25/24 07:46 Compazine) Home Medication ?Medication ?Instructions ?Recorded ondansetron 4 mg disintegrating 4 mg PO DIRECTED 11/23/23 tablet albuterol sulfate 90 mcg/actuation 2 puff inhalation Q6H PRN 05/08/24 aerosol inhaler cholecalciferol (vitamin D3) 50 50 mcg PO DAILY 05/08/24 mcg (2,000 unit) capsule cyanocobalamin (vitamin B-12) 50 50 mcg PO DAILY 05/08/24 mcg tablet diclofenac sodium 1 % topical gel 2 g topical QID 05/08/24 (Arthritis Pain (diclofenac)) glucose 4 gram chewable tablet 4 g PO Q15M PRN 05/08/24 (Dex4 Glucose) omeprazole 40 mg capsule,delayed 40 mg PO DAILY PRN 07/13/24 release calcium 315 mg (as 1 tab PO BID 10/11/24 citrate)-vitamin D3 5 mcg (200 unit) tablet (Calcium Citrate + D) enalapril maleate 5 mg tablet 5 mg PO DAILY 10/11/24 hydroxyzine HCl 50 mg tablet 50 mg PO BID 10/11/24 lisdexamfetamine 60 mg capsule 60 mg PO DAILY 10/11/24 trazodone 100 mg tablet 100 mg PO DAILY 10/11/24 zolpidem 10 mg tablet 10 mg PO QHS PRN 10/11/24 duloxetine 60 mg capsule,delayed 120 mg PO DAILY 10/20/24 release acetaminophen 500 mg tablet 1,000 mg (2 x 500 mg) PO Q8H PRN 10/25/24 pain #90 tabs aspirin 81 mg tablet,delayed 81 mg PO BID 30 days #60 tabs 10/25/24 release celecoxib 200 mg capsule (Celebrex) 200 mg PO BID PRN #60 caps 10/25/24 dexamethasone 4 mg tablet 4 mg PO DAILY #2 tabs 10/25/24 docusate sodium 100 mg capsule 100 mg PO BID #28 caps 10/25/24 (Colace) gabapentin 300 mg capsule 300 mg PO QHS #14 caps 10/25/24 oxycodone 5 mg tablet 5 mg PO Q4H PRN #18 tabs 10/25/24 Current Visit Medications: Current Medications Generic Name Dose Route Start Last Admin Trade Name Freq PRN Reason Stop Dose Admin Acetaminophen 1,000 mg 10/25/24 06:00 Acetaminophen 500 Mg Tab PO 10/25/24 23:59 PREOP ALEXANDER Celecoxib 400 mg 10/25/24 06:00 Celecoxib 200 Mg Cap PO 10/25/24 23:59 PREOP ALEXANDER Gabapentin 300 mg 10/25/24 06:00 Gabapentin 300 Mg Cap PO 10/25/24 23:59 PREOP ALEXANDER Hydromorphone HCl 0.5 mg 10/25/24 07:08 Hydromorphone 2 Mg/Ml Syr IVP 11/24/24 07:07 Q2H PRN PRN Ringer's Solution 1,000 mls @ 80 mls/hr 10/25/24 06:00 IV 10/25/24 23:59 INFUSION ALEXANDER Cefazolin Sodium/Dextrose 2 gm in 50 mls @ 100 mls/hr 10/25/24 06:00 Ancef Duplex IVPB 10/25/24 23:59 PREOP ALEXANDER Tranexamic Acid/Sodium Chloride 1,000 mg in 100 mls @ 600 mls/hr 10/25/24 06:00 IVPB 10/25/24 23:59 PREOP ALEXANDER Cefazolin Sodium/Dextrose 1 gm in 50 mls @ 100 mls/hr 10/25/24 08:00 Ancef Duplex IVPB 10/26/24 00:29 Q8H ALEXANDER IV Miscellaneous Supplies 1 each 10/25/24 06:00 Iv Access IV 10/25/24 23:59 DIRECTED ALEXANDER Oxycodone HCl 0 mg 10/25/24 07:08 Oxycodone 5 Mg Tab PO 11/24/24 07:07 Q3H PRN PRN Pain Sodium Chloride 0 ml 10/25/24 06:00 Normal Saline Flush 10 Ml Syr IV 10/25/24 23:59 PRN PRN Sodium Chloride 0 ml 10/25/24 06:00 Normal Saline 10 Ml Vial IJ 10/25/24 23:59 DIRECTED PRN Sterile Water 0 ml 10/25/24 06:00 Water,Injection,Sterile 10 Ml Vial IJ 10/25/24 23:59 DIRECTED PRN Tranexamic Acid 1,300 mg 10/25/24 07:08 Tranexamic Acid 650 Mg Tab PO 11/24/24 07:07 ONCE PRN postoperative PFSH Active Problems Active Problems: Problem Status Onset Code Left knee DJD Chronic M17.12 Osteoarthritis of knees, bilateral Acute M17.0 Rupture of right proximal biceps tendon Acute S46.211A Right rotator cuff tear Acute 09/06/23 M75.101 Medical History Medical History Osteoarthritis Morbid (severe) obesity due to excess calories MDD (major depressive disorder) Fibromyalgia Benign hypertensive heart disease without congestive heart failure Weakness TMJ (dislocation of temporomandibular joint) Insomnia GERD (gastroesophageal reflux disease) Left ventricular outflow tract obstruction Rupture of right biceps tendon JAY (generalized anxiety disorder) Trigger finger HTN (hypertension) Anxiety ADD (attention deficit disorder) Depression Tachycardia Per pt. had full [id number] to high dose ADD medication that has since been changed Surgical History Surgical History H/O gastric bypass 11/06/21 Hx of section x2 Hx of exploratory laparotomy Hx of cholecystectomy History of surgery on wrist Hx of tonsillectomy Tobacco Smoking/Tobacco Use Status: Never Passive smoking exposure: No Alcohol Alcohol Intake: current Alcohol intake frequency: a few times a month Substance Use Substance use: Never Substance use type: does not use Vital Signs and Lab Results Vital Signs Most Recent Vital Signs in EMR: Most Recent Vital Signs Temp Pulse Resp BP Pulse Ox 36.8 C 87 17 145/76 H 99 10/25/24 07:14 10/25/24 07:14 10/25/24 07:14 10/25/24 07:14 10/25/24 07:14 Point of Care Results Point of Care Results: POC- Test(urine) Negative 10/25/24 07:14 Lab Results Complete Blood Count: WBC, (4.4-10.8) 8.00 10^3/uL 10/20/24, 11:30 RBC, (3.93-5.22) 4.64 10^6/uL 10/20/24, 11:30 Hgb, (11.2-15.7) 13.9 g/dL 10/20/24, 11:30 Hct, (36.0-46.0) 43.3 % 10/20/24, 11:30 Plt Count, (130-400) 352 10^3/uL 10/20/24, 11:30 Complete Metabolic Panel: Sodium, (136-145) 143 mmol/L 10/20/24, 11:30 Potassium, (3.5-5.1) 4.0 mmol/L 10/20/24, 11:30 Chloride, (98-107) 105 mmol/L 10/20/24, 11:30 Carbon Dioxide, (21.0-32.0) 29.1 mmol/L 10/20/24, 11:30 BUN, (7-18) 13 mg/dL 10/20/24, 11:30 Creatinine, (0.55-1.02) 0.7 mg/dL 10/20/24, 11:30 Est GFR (CKD-EPI 2020), (mL/min/1.73m2) 104.00 10/20/24, 11:30 Calcium, (8.5-10.1) 9.0 mg/dL 10/20/24, 11:30 Glucose, (74-106) 109 mg/dL H 10/20/24, 11:30 Hemoglobin A1c, (<5.7) 5.2 % 10/20/24, 11:30 Imaging and Studies Imaging and Studies Study information below may be from another EMR and interpreted by another provider. Please see original notes in EMR for more complete details. EKG Summary: EKG PATIENT NAME: Kelly Song UNIT #: [id number] ORDERING PROVIDER: Dannielle Kimble M.D. PRIMARY CARE PROVIDER: DONALD FELDMAN DO DATE/TIME OF SERVICE: 11/28/23 0253 : 1970 PERFORMING LOCATION: ER APPROVED REPORT Exam: Resting ECG Reason for Exam: chest pain Patient Location: E HR:87 bpm ECG Measurements Heart Rate 87 AXIS LA 148 P 56 QRSd 76 QRS 11 QT 331 T35 QTc 399 Conclusion Sinus rhythm...normal P axis, V-rate 60- 99 Normal Electrocardiogram <Electronically signed by DANNIELLE KIMBLE MD in [place]> E-Sign Date: 11/28/23 E-Sign Time: 335 ADDENDUM APPROVED REPORT Exam: Resting ECG Reason for Exam: chest pain Patient Location: E HR:87 bpm ECG Measurements Heart Rate 87 AXIS LA 148 P 56 QRSd 76 QRS 11 QT 331 T35 QTc 399 Conclusion Sinus rhythm...normal P axis, V-rate 60- 99 Normal Electrocardiogram I have reviewed and I agree with the emergency room physician's ECG interpretation. Electronically signed by: <Electronically signed by Vivi Gamino M.D. in [facility]> 12/02/23 0922 Cosigned by: Anesthesia Assessment and Plan Anesthesia History Personal History: Delayed Emergence Family History: No Family History of Anesthesia Complications Exercise Tolerance Exercise Tolerance: Metabolic Equivalents>4 Pertinent Negatives Pertinent Negatives: No Symptoms of GERD, No Major Cardiovascular Symptoms or Complaints (Hx of Tachycardia at rest, started on metoprolol with improvement), No Major Pulmonary Symptoms or Complaints and No History of CVA/TIA Cardiac & Pulmonary Exam Cardiac Exam: Normal S1/S2 Heart Sounds Pulmonary Exam: Clear Bilateral Breath Sounds Implantable Cardiac Device Does patient have a Pacemaker or an ICD?: No Airway Exam Known Difficult Airway: No Mallampati Class: 1 Mouth Opening: Normal (> 3cm) Thyromental Distance: Greater than 3 cm Facial Hair: Full [place] Neck Range of Motion: Full ROM Neck Circumference: Thick Teeth Condition: Generalized Poor Dentition and Advised tooth loss possible given current condition (indicate tooth) (General throughout. ) Airway Comments: multiple missing teeth, mainly 01/19, multiple cracked teeth. Generally poor dentition. ASA Classification ASA Score: ASA 3 Emergency Case?: No NPO Status NPO Status: NPO Clears >2 hours, Solids >8 hours Status Status: Negative HCG Anesthesia Plan Resuscitation Status: Full Code Anesthesia Technique: General Anesthesia Airway Planned: Endotracheal Tube Pain Management: Surgeon and patient request nerve block Monitors Used: Standard Monitors and SedLine
[2024-10-25] MEDS: Celecoxib 200 MG CAP 400 MG PO (07:51)
[2024-10-25] MEDS: Gabapentin 300 MG CAP PO (07:51)
[2024-10-25] MEDS: Acetaminophen 500 MG TAB 1000 MG PO (07:51)
[2024-10-25] MEDS: Lactated Ringers 1,000 ML 80 ML IV (07:52)
--- NOTE | 2024-10-25 08:39 | W.ANESNERVE ---
Nerve Block Single Injection Procedure Date and Time Date Performed: 10/25/24 Procedure Start: : Location Where Procedure Performed Procedure Location: Day Surgery Unit Reason Performed: Postoperative Analgesia Requesting Provider: Ousmane To Timeout Performed Timeout Performed: Yes Monitoring Used ECG, Blood Pressure and SpO2 Sterility Sterility: Hand Hygiene, Surgical Cap, Surgical Mask, Sterile Gloves and Chlorhexidine Sedation Given During Procedure Sedation Given (Indicate Dose Given): Precedex IV Dose:: 12 mcg Patient Mental Status Patient Mental Status: Sedate with meaningful communication Nerve Block 1st Nerve Block: Laterality: Left Block Type: Adductor Canal Ultrasound Image Saved?: Yes Needle / Catheter Used: 120mm SonoPlex II Local Anesthetic Bolus (Indicate Dose Given): Lidocaine used for local infiltration of skin, Injected in 3-5ml increments after negative blood aspiration, Bupivacaine 0.25% Dose:: 8 ml and Exparel Dose:: 10 ml Additives (Indicate Dose Given): None Ultrasound: Sterile probe cover and gel used Nerve Stimulator: Supplement to Ultrasound use and No twitch or parasthesia noted < 0.5 mA Paresthesia: None Procedure Tolerated: No Complications and Patient tolerated well Procedure Outcome: Successful Performed By: Prince Loera 2nd Nerve Block: Laterality: Left Block Type: Other (Anterior Femoral Cutaneous Nerve Block) Ultrasound Image Saved?: Yes Needle / Catheter Used: 120mm SonoPlex II Local Anesthetic Bolus (Indicate Dose Given): Lidocaine used for local infiltration of skin and Bupivacaine 0.25% Dose:: 10 ml Additives (Indicate Dose Given): None Ultrasound: Sterile probe cover and gel used Nerve Stimulator: Supplement to Ultrasound use and No twitch or parasthesia noted < 0.5 mA Paresthesia: None Procedure Tolerated: No Complications and Patient tolerated well Procedure Outcome: Successful Performed By: Prince Loera
--- NOTE | 2024-10-25 09:03 | ROE_ITS ---
Operative Note Operative Note PRE-OP DIAGNOSIS: Left Knee Osteoarthritis with Varus Deformity POST-OP DIAGNOSIS: same PROCEDURE: Left Total Knee Replacement with Intraoperative Navigation SURGEON: Ousmane To [employer] ASSOCIATE: Essie Carr ANESTHESIA TYPE: General LMA/ETT Refer to Anesthesia Record ESTIMATED BLOOD LOSS: 250 PATHOLOGY: none sent TOURNIQUET TIME: 0 COMPLICATIONS: Other (Small, ~2mm, notch of the anterior femur) Patient was transported to: PACU Patient's condition: stable Implants: 1. Depuy Attune Cementless Cruciate Retaining Femoral Component, Size 4 narrow 2. Depuy Attune Cementless Fixed Bearing Tibial Component, Size 3 3. Depuy Attune 4x7mm CR/FB Poly 4. Depuy Attune Patellar Component, Size 32 mm Indications: I have seen Kelly in clinic for symptoms of LEFT knee arthritis, confirmed with radiographic findings. Kelly has exhausted nonoperative methods and was having significant limitations in daily function and desired better function and less pain. I discussed the technical details of a knee replacement. I explained the risks of the procedure to include, but not limited to, bleeding, infection, pain, stiffness, fracture, damage to nerves and vessels, damage to muscles and tendons, loosening, need for repeat procedure, blood clot and cardiopulmonary demise. Despite these risks, she elected to proceed. Findings: There was significant signs of arthritis throughout the knee involving all 3 compartments. The case was challenging given the significant preoperative stiffness, flexion of maybe 70 degrees at most. There is also a large amount of osteophytes throughout the entirety of the knee and stiff, tight and contracted tissues. Procedure Description: Kelly was greeted in the preoperative holding area where the correct side was identified and marked. The consent was reviewed with the patient and signed. The history and physical was updated. All questions were answered. Preoperative mediacations were administered: Acetaminophen 1000mg, Celebrex 400mg, and Gabapentin 300mg. An adductor canal block was then administered by the anesthesia team in the DSU. She was taken back to the operating room. A general anesthestic was then administered. The patient was placed into the supine position on the operating room table. Posts were placed for positioning during the procedure. All bony prominences were well padded. Prophylactic antibiotics in the form of Cefazolin were administered. 1g of Tranxemic Acid was given intravenously within 30 minutes of incision. The left leg was then prepped with Chloraprep and draped in a standard fashion with impervious stockinette. A second prep with Chloraprep was performed prior to application of Iodine impregnated skin protection. A timeout to confirm correct identity, side and site, procedure, allergies, anesthesia, and medical concerns was performed. With the knee in some flexion, a midline incision was made overlying the knee. Full thickness skin flaps were raised once the extensor mechanism was encountered. These were raised medially and laterally. Any bleeding was controlled with electrocautery. Once the extensor mechanism was fully exposed, a medial parapatellar arthrotomy was performed in a flexed position. All bleeding from the arthrotomy and the geniculate arteries was coagulated. A medial subperiosteal peel was performed with electrocautery to the midcoronal plane. Due to the significant varus deformity the entire medial tibial plateau was exposed. The fat pad was removed while keeping the patellar tendon protected. The anterior distal femur synovium was removed for later visualization. The ACL and PCL were resected and the anterior horn of the lateral meniscus was transected. The knee was then flexed with the patella everted. Large osteophytes from the tibia were removed. Large osteophytes from the femur were removed. Evaluation and examination and manipulation of the knee was challenging given her significant limitation in motion. Preoperatively she had maybe 70 degrees at most. Given the difficulty with access I extended the quadrant split up into the vastus lateralis. A single starting pin was then placed 1cm anterior to the PCL insertion and the notch in the direction of the femoral head. The OrthoAlign device was applied over the pin. It was oriented to be in line with the epicondylar axis and the trochlear groove. It was then pinned into place. The navigation computer was then turned on and calibrated. The distal femur cut was set at 1 degrees varus and 3.5 degrees flexion. The distal femur cutting guide then was positioned for a 8mm cut. The distal femur was cut with an oscillating saw while protecting the soft tissues. The tibia was then addressed. The OrthoAlign device was placed over the tibial tubercle and medial tibia and secured into position. Once again, OrthoAlign was calibrated and then set for a 2 degree varus cut and 5.5 degrees of posterior slope. With this locked into position, the cut thickness stylus was used to assess cut thickness. The medial side, most involved side, was set for a 4mm cut. This was then held in position and pinned into place with 2 additional pins and a cross pin for stability. The medial and lateral collateral ligaments were protected and the cut was performed. With this completed, it was assessed and noted to be of appropriate dimensions. The guide and OrthoAlign was removed. A spacer block was inserted and the knee was brought into extension to ensure enough space was present. . The Orthoalign gap balancing device was then placed in extension. This was used to ensure that the ligaments were properly balanced with up to 2 to 3 mm laxity laterally compared medially. The extension gap was measured as 19mm. The knee was then brought into 90 degrees of flexion and the ligament optical fabricator was once again placed. Under the same amount of force the flexion gap was measured. The Attune specific jig was placed and the flexion gap was made to match the ex tension gap. The femur was then sized as a size 4 narrow. The 4-in-1 cutting guide was the placed. An dot wing was used to confirm appropriate position of the anterior cut to avoid notching. This cutting guide was ensured to be flush on the cut surface and then pinned into place with headed pins. While protecting the soft tissues, quad tendon, and collateral ligaments, the anterior and posterior cuts were performed with a saw. The anterior cut unfortunately did not exit where I had expected it to. It did not about 2 mm. This area was smoothed with a rongeur and then a rasp. The central two pins were removed and the posterior and anterior chamfers were cut next. The notch-cutting guide was placed. This was pinned to lateralize the femoral component as much as possible while keeping it flush on the cut surface. This was then pinned into position. A saw was used to make the notch cut. A rasp smoothed the cut surfaces. The medial and lateral menisci were removed. A tria l femoral component was then inserted, impacted down to the cut surfaces, and the lug holes were drilled. A provisional trial tibial component was placed and the knee was brought through range of motion. The polyethylene was trialed until there was good flexion and extension with excellent stability to the medial and lateral collaterals. The patella was tracking without thumbs. A size 7mm polyethylene component provided the best range of motion and stability with less than 2mm gapping with medial and lateral stress and full extension without significant hyperextension. The tibial cut surface was fully exposed. The tibia was then sized as a 3. The tibia had been previously marked during trialing to correspond to the center of the tibial component to help with rotation. The trial was aligned to this abad, approximately rotated to the medial 1/3rd of the tibial tubercle. The trial was pinned into place. The tibia was prepared with a reamer and a keel punch and lug holes. The knee was then brought into extension and the patella was measured as 21mm. Using the patellar clamp and cut guide, this was resected to a flat surface with at least 13mm of thickness remaining. The size 32mm patella fit the best. This was oriented and then clamped into position. The lugs were drilled. The trial components were removed. The final components were opened on the back table. The periosteal and capsular tissues, especially posteriorly, around the knee were then systematically injected with a periarticular cocktail consisting of 246mg of Ropivacaine, 0.5mg of Epinephrine, 0.08mg of Clonidine, and 30mg of Ketorolac, diluted to 100cc. On the back table, with the implants opened, the cement was mixed. One batch of high viscosity cement was prepared with vacuum assistance. After the cement was ready a small amount was placed on the cut surface of the patella and the patellar button was clamped into position and held. Then, the knee components were placed. Starting with the tibial component, the tibia was subluxed anteriorly and the lug holes of the component were lined up. The tibia was then impacted with an impactor and mallet until the tibial component was in contact with the tibia. Then, the femoral component was inserted. The lug holes were aligned and the component was impacted into position. The final polyethylene component was inserted. The knee was irrigated with Surgiphor Betadine solution. This was allowed to sit in the knee for 3 minutes and then it was thoroughly irrigated out with saline. After the cement had finally cured, approximately 15min, the clamp was removed from the patella. The knee was then taken through range of motion. The patella was tracking with a no-thumbs technique. A complete synovectomy of the patella was performed. Any prominence to the lateral facet was resected with a rongeur. The capsule was then reapproximated with a No. 1 Vicryl at multiple locations. The capsule was finally closed with a No. 2 Stratafix, barbed suture. Deep tissues were then reapproximated with 0 Vicryl and 2-0 Vicryl. The skin was closed with a running 3-0 Monocryl in a subcuticular fashion. This was reinforced with skin glue. A Mepilex silver dressing was applied along with a [id number] YASMEEN wrap. A CryoCuff was applied. Kelly was transferred to the hospital bed without difficulty an suffering no apparent complication. She has a good prognosis. The notch was quite small and should not affect any of her recovery. She will continue to be weightbearing as tolerated. Physical therapy will start today and without restrictions, weight-bearing as tolerated. Aspirin 81mg BID will be used for DVT prophylaxis. Date of Procedure: 10/25/24
[2024-10-25] MEDS: TRANEXAMIC ACID/SOD. CHL. 1,000 MG/100 ML BAG 600 MG IVPB (09:16)
[2024-10-25] MEDS: ceFAZolin 2 GM/50 ML BAG IVPB (09:20)
[2024-10-25] MEDS: Ondansetron 4 MG/2 ML VIAL IVP (11:49)
[2024-10-25] MEDS: oxyCODONE 5 MG TAB PO (13:01)
[2024-10-25] MEDS: Tranexamic Acid 650 MG TAB 1300 MG PO (13:01)
--- NOTE | 2024-10-25 14:01 | W.ANESPOSTOP ---
Postoperative Evaluation Date, Time and Location Date Performed: 10/25/24 Time Performed: 14:01 Patient Location: Day Surgery Unit Vital Signs Most Recent Imported Vital Signs: Most Recent Vital Signs Temp Pulse Resp BP Pulse Ox 36.9 C 95 H 17 127/62 96 10/25/24 13:03 10/25/24 13:03 10/25/24 13:03 10/25/24 13:03 10/25/24 13:03 Pain Score Most Recent Pain Score: Most Recent Pain Score Pain Level 3 10/25/24 13:03 Assessment Mental Status: Awake (Alert & Oriented to Patient Baseline) Airway and Respiratory Function: Patent airway with normal (patient baseline) respiratory exam Cardiovascular Function: Hemodynamically Stable Hydration Status: Adequately Hydrated Nausea & Vomiting: No Nausea or Vomiting Pain: Pain is tolerable per patient Peripheral Nerve Block: Regional nerve block not resolved at time of post operative discharge
--- NOTE | 2024-10-25 14:16 | IN_ITS ---
PT Notes Visit Reasons: Left knee DJD Physical Therapy Day Surgery Initial Evaluation Date: 10/25/2024 Referring Doctor: Essie Carr NP/ Dr To PT Orders: PT CONSULT: s/p Ortho Surgery Precautions:WBAT LLE with AD Patient Profile/Admitting Diagnosis: Kelly is a 54 yo female presenting s/p elective Left TKA by Dr To under spinal anesthesia and nerve block. Post op uncomplicated. PMHX: Osteoarthritis Morbid (severe) obesity due to excess calories MDD (major depressive disorder) Fibromyalgia Benign hypertensive heart disease without congestive heart failure Weakness TMJ (dislocation of temporomandibular joint) Insomnia GERD (gastroesophageal reflux disease) Left ventricular outflow tract obstruction Rupture of right biceps tendon JAY (generalized anxiety disorder) Trigger finger HTN (hypertension) Anxiety ADD (attention deficit disorder) Depression Tachycardia Surgical History (Updated 10/19/24 @ 11:56 by Omar Espinoza) H/O gastric bypass 11/06/21Hx of section x2Hx of exploratory laparotomy Hx of cholecystectomy History of surgery on wrist Hx of tonsillectomy Social History/Home Situation: resides in an apt no steps to enter, sleeps in recliner, independent ambulation and ADL, drives Equipment Owned/DME: [employer], maddiee Subjective:Pt reports she waited too long to have this surgery but now she is ready to do the work in preparation to have her right knee done in November. Pt states she attends PT for her right shoulder and states it is moving much better. Objective: [] General Observation: female presenting semireclined on stretcher with mother present. Mental Status: A+Ox 4 , able to follow instructions, agreeable to participate in assessment Pain: left knee 1-2 /10 after meds ROM: [] right shoulder able to perform shoulder flexion >100 degrees for functional reach behind head for grooming. Right Lower Extremity: hip and ankle WFL; knee 0 -85 Left Lower Extremity: hip and ankle WFL ; knee 0-~80 degrees Strength: [] Right Lower Extremity: Hip flexion: 3- /5; hip abduction: 2+ /5; hip extension: 3- /5; knee extension: 3 /5; knee flexion: 2+ /5 ankle DF: 3 /5 ; ankle PF: 3 /5 Left Lower Extremity: Hip flexion: 2+ /5; hip abduction: 2+ /5; hip extension: 3- /5; knee extension: 3- /5; knee flexion: 2+ /5 ankle DF: 3 /5 ; ankle PF: 3/5; Fair quad set needs cues to not compensate. SLR in shortened range 3out of 5 reps without lag then fatigues. needs cues to initiate SLR with QS Sensation: intact Bed Mobility/Transfers: [] Supine to sit supervision ( pt sleeps in recliner at home x multiple years) Sit to stand supervision Stand to sit supervision with cue to bring LLE forward Bed to chair FWW supervision Gait: amb with FWW CGA 35 feet x1 70 feet , step pattern reduced knee flexion during left swing phase. then progressed to slight reciprocal pattern . with cueing able to achieve knee flexion and heelstrike. Balance: [] Static Sitting: Normal Dynamic Sitting: Good- Static Standing: Good with BUE support Dynamic Standing: Fair + with UE support Special Tests: [] Mobility Limitations Standardized Measure [] [facility] AM-PAC 6 clicks Basic Mobility Inpatient Short Form: [] Raw Score: 16 CMS Score: 54.16% Informed Consent/Education: Patient instructed in purpose of PT consult. Treatment: 34361 Packet containing TKA exercise protocol has been given to patient. Education and training on initial set of 5 reps of exercises that can be done at home have been completed with patient. Assessment: Patient is a 54 yo female with high BMI who presents with clinical signs and symptoms consistent with current/admitting diagnoses that have resulted to mobility limitations, gait instability, generalized weakness, and impairment of motor control as demonstrated by the following impairment level findings: 1. Decreased strength to left knee major muscle groups 2. Impaired standing balance 3. Limitation of joint range of motion in left knee 4. pain in left knee 5. BMI 6. impaired functional activity tolerance Impairments are contributing to the following functional limitations: 1. Inability to safely ambulate without assistive device 2. Increase completion time for mobility ADL performance 3. Increased fall risk 4. decline in transfer skills Patient is assessed as a low complexity based on the following: History: 54-year-old female with impairment level findings, functional limitations, and past medical history as indicated above Examination: Demonstrable impairment in strength, balance, and mobility level with underlying impairments and functional limitations as documented above Presentation: evolving/stable Decision Making: low Goals: N/A. PT evaluation and 1-2 treatment sessions only for functional mobility training using recommended AD and for HEP instruction. Plan of Care/Treatment Plan: N/A. PT evaluation and 1-2 treatment session only for functional mobility training using recommended AD and for HEP instruction. DISCHARGE RECOMMENDATIONS: Home with HEP and outpatient PT as scheduled TREATMENT CODE/TIME: 58375, [id number] / [id number] Thank you for the opportunity to participate in the care of this patient. Piedad Sales, PT [facility]
== END 2024-10-25 14:33 | disposition home or self-care (01) ==
PROVIDERS: PCP Family Medicine; Visit Provider Student in an Organized Health Care Education/Training Program
PROC: (CPT 27447; principal; 2024-10-25 09:00)
DX: M17.12 Unilateral primary osteoarthritis, left knee (principal); G89.18 Other acute postprocedural pain
CPT/HCPCS: 27447; 20985; 64447; 64450; 81025; 97110; 97161; C1776; J0665; J0666; J0690; J1100; J1171; J2250; J2371; J2405; J2704; J3010; J3475

== ENCOUNTER 2024-11-09 10:36 | Outpatient (CLI) | payer MEDICAID, SELFPAY ==
--- NOTE | 2024-11-09 09:30 | DI.RAD_ITS ---
Exam(s) XR KNEE LT 1V XR STANDING ALIGNMENT EXAM: XR STANDING ALIGNMENT CLINICAL HISTORY: 1ST POST OP S/P L TKA. TECHNIQUE: 2D digital imaging was performed. Standing AP views were performed from the pelvis through the ankles. COMPARISON: CR XR STANDING ALIGNMENT from 10/20/2024 CR XR KNEE LT 1V from 11/09/2024 FINDINGS: BONES: No acute fracture is present. No bony destructive lesion is seen. Leg length discrepancy: Approximate 1 cm leg length discrepancy, with the left femoral head projecting superior to the right. JOINTS: Knees: A left knee prosthesis has been placed. The alignment appears satisfactory. There again noted to be severe degenerative changes of the right knee, greater at the medial femoral tibial component which shows [id number] joint space narrowing and prominent periarticular spurring as well as severe varus angulation. The ankle joints are unremarkable. The hip joints are unremarkable. SOFT TISSUE: Lower extremity edema. IMPRESSION: Severe degenerative changes of the right knee. The left knee prosthesis appears normally aligned. Approximate 1 cm overall leg length discrepancy. DATA REPOSITORY: RADIATION DOSE DELIVERED:
== END 2024-11-09 10:37 | disposition home or self-care (01) ==
LOC: DIORS 10:37
PROVIDERS: PCP Family Medicine; Visit Provider Student in an Organized Health Care Education/Training Program
DX: Z96.652 Presence of left artificial knee joint (principal)
CPT/HCPCS: 73560; 77073

== ENCOUNTER 2024-12-06 07:29 | Observation (INO) | payer MEDICAID, SELFPAY ==
[2024-12-06] VITALS (14 sets, daily range): BP systolic 80–131; BP diastolic 37–80; PULSE 75–96; RESP 12–20; TEMP 36–36.8; O2SAT 94–99; BMI 49.7
--- NOTE | 2024-12-06 07:30 | PDOC.DSDIS_ITS ---
Date of service: 12/06/24 Discharge Plan Disposition Patient Disposition: Home Condition: Good Discharge Details Reason For Visit: OA R Knee Admit Date/Time: 12/06/24 07:29 Admit Provider: Ousmane To Attending Provider: Ousmane To Primary Care Provider: Patricia Mckay Hospital Course Hospital Course: Patient was admitted to the medical/surgical floor following the procedure. The surgery was tolerated well without any notable medical, surgical, or anesthetic complications except for more bleeding than expected. Follow-up labs showed post-op anemia, Hgb from 13 to 9. Mobilization began postoperatively. She was voiding spontaneously. Vitals were stable. Physical therapy worked with the patient and was cleared for discharge home. No acute medical issues. Pain was controlled on oral regimen. Home Meds and New Rx's Prescriptions: New oxycodone 5 mg tablet 5 mg PO Q4H MDD 6 tabs PRN (Reason: pain) Qty: 12 0RF celecoxib 200 mg capsule 200 mg PO BID Qty: 60 0RF aspirin 81 mg tablet,delayed release (DR/EC) 81 mg PO BID Qty: 60 0RF acetaminophen 500 mg tablet 1,000 mg PO TID Qty: 90 3RF dexamethasone 4 mg tablet 4 mg PO DAILY Qty: 2 0RF gabapentin 300 mg capsule 300 mg PO QHS Qty: 14 0RF docusate sodium 100 mg capsule 100 mg PO BID PRNQty: 28 0RF ferrous fumarate 324 mg (106 mg iron) tablet 324 mg PO DAILY Qty: 30 0RF Continued albuterol sulfate 90 mcg/actuation HFA aerosol inhaler 2 puff inhalation Q6H PRN cholecalciferol (vitamin D3) 50 mcg (2,000 unit) capsule 50 mcg PO DAILY cyanocobalamin (vitamin B-12) 50 mcg tablet 50 mcg PO DAILY diclofenac sodium [Arthritis Pain (diclofenac)] 1 % gel 2 g topical QID Rx Instructions: apply to single elbow, wrist or hand; for hand includes palm/fingers/back of hand glucose [Dex4 Glucose] 4 gram tablet,chewable 4 g PO Q15M PRN Rx Instructions: until symptoms of low blood sugar are controlled omeprazole 40 mg capsule,delayed release(DR/EC) 40 mg PO DAILY PRN gabapentin 300 mg capsule 300 mg PO QHS Qty: 30 0RF calcium citrate-vitamin D3 [Calcium Citrate + D] 315 mg-5 mcg (200 unit) tablet 1 tab PO BID enalapril maleate 5 mg tablet 5 mg PO DAILY hydroxyzine HCl 50 mg tablet 50 mg PO BID lisdexamfetamine 60 mg capsule 60 mg PO DAILY trazodone 100 mg tablet 100 mg PO DAILY zolpidem 10 mg tablet 10 mg PO QHS PRN duloxetine 60 mg capsule,delayed release(DR/EC) 120 mg PO DAILY celecoxib [Celebrex] 200 mg capsule 200 mg PO BID PRN (Reason: pain) Qty: 60 0RF Rx Instructions: Take one tablet twice daily for pain and inflammation tramadol 50 mg tablet 50 - 100 mg PO Q4H MDD 8 tabs PRN (Reason: pain) Qty: 30 0RF docusate sodium [Colace] 100 mg capsule 100 mg PO BID Qty: 28 0RF lorazepam 0.5 mg tablet 0.5 mg PO DIRECTED PRN Patient Comments: TAKE 1 TABLET BY MOUTH DAILY NEEDED FOR ANXIETY cephalexin 500 mg tablet 500 mg PO QID ondansetron 4 mg tablet,disintegrating 4 mg PO DIRECTED Patient Comments: dissolve 1 tablet on top of the tongue every 8 hours if needed for nausea and vomiting Discontinued acetaminophen 500 mg tablet 1,000 mg PO Q8H PRN Qty: 90 0RF Rx Instructions: Take two tablets up to every 8 hours as needed for pain No Action metoprolol tartrate 25 mg tablet Patient Comments: take 1/2 tablet by mouth twice a day Discharge Instructions Additional Instructions: Total Knee Discharge Instructions Activity: The most important activity is to walk and to work on gentle motion (both flexion and extension). You should try to take short walks a few times a day. It is important that when resting you work on keeping the knee straight. Avoid putting a pillow behind the knee as this will encourage flexion. Work on range of motion exercises as provided by Physical Therapy. - Start outpatient physical therapy within 2 weeks. - You should wear the TETE hose on both legs for 2 weeks. You may remove these at night. You may also use any compression sock in place of the TETE hose. - Utilize [employer] to review exercises, see videos on exercises and obtain basic information pertaining to your surgery and your recovery. Dressing: Remove the Estrada wrap by 2 days after your surgery and put on the TETE stocking given to you from the hospital. Keep the surgical dressing (underneath the ESTRADA wrap) in place for at least one week. After the first week it may be removed and replaced with light gauze and tape or nothing. The wound and dres sing may get wet after 3 days but avoid soaking the dressing or otherwise it will need to be changed. Many people prefer covering the dressing with cling wrap (saran wrap) to minimize it from getting soaked. If it gets wet, just pat dry. If it starts to peel off then it will need to be changed. Medications: - You should take Tylenol and anti-inflammatory Celebrex as your primary pain control medications. If the Celebrex is too expensive or not covered, please call the office for another alternative (Advil/Ibuprofen or Naproxen/Aleve) - You have been prescribed a stronger pain medication Oxycodone for breakthrough pain, take as needed as prescribed. - You will continue your omeprazole to help reduce stomach acid and reflux. - You have been prescribed Gabapentin to take at night for restlessness and nerve pain. - You will be taking Aspirin 81mg twice a day for DVT prevention unless instructed otherwise. - You have also been prescribed Decadron to take to control post-operative nausea and pain. You will start this tomorrow. - If you have constipation you should take Colace or Miralax (both [id number]). It takes most people 3-4 days to have a bowel movement. Follow-up: 2 weeks If you have any acute concerns or questions, please do not hesitate to contact the office at [phone]. You may contact Dr. To with any questions after hours through the hospital at [phone] or on his cell phone at [phone]. Stand Alone Forms: Anesthesia Discharge Inst., Anes.Nerve Block Instructions, Dimas Ortiz (DSU) Referrals: Ousmane To MD [ [facility] STAFF PHYSICIAN, Orthopaedic Surgical] - 12/21/24 3:00 pm Activity:: Activity as Tolerated Equipment/Supplies:: Walker Diet:: As Tolerated Discharge Orders Discharge Orders: Discharge Order (Routine); Ordered 12/07/24 Ordered By: Ousmane To DS: Diagnosis Discharge Diagnosis (1) Osteoarthritis of knees, bilateral: Status: Acute
[2024-12-06] MEDS: Acetaminophen 500 MG TAB 1000 MG PO (10:32)
[2024-12-06] MEDS: Celecoxib 200 MG CAP 400 MG PO (10:32)
[2024-12-06] MEDS: Gabapentin 300 MG CAP PO ×3 (10:33→19:50)
[2024-12-06] MEDS: Lactated Ringers 1,000 ML 80 ML IV (10:48)
--- NOTE | 2024-12-06 11:43 | ROE_ITS ---
Operative Note Operative Note PRE-OP DIAGNOSIS: Right Knee Osteoarthritis POST-OP DIAGNOSIS: same PROCEDURE: Right Total Knee Replacement with Intraoperative Navigation SURGEON: Ousmane To CONE EXAMINER: Abad Coley ANESTHESIA TYPE: General LMA/ETT Refer to Anesthesia Record ESTIMATED BLOOD LOSS: 600 PATHOLOGY: none sent TOURNIQUET TIME: 0 COMPLICATIONS: None Patient was transported to: PACU Patient's condition: stable Implants: 1. Depuy Attune Cementless Cruciate Retaining Femoral Component, Size 4 Narrow 2. Depuy Attune Cementless Fixed Bearing Tibial Component, Size 2 3. Depuy Attune 6x7mm CR/FB Poly 4. Depuy Attune Patellar Component, Size 32 mm Indications: I have seen Kelly in clinic for symptoms of RIGHT knee arthritis, confirmed with radiographic findings. Kelly has exhausted nonoperative methods and was having significant limitations in daily function and desired better function and less pain. I discussed the technical details of a knee replacement. She has recovered nicely from her left knee replaced and is very happy with the results. I explained the risks of the procedure to include, but not limited to, bleeding, infection, pain, stiffness, fracture, damage to nerves and vessels, damage to muscles and tendons, loosening, need for repeat procedure, blood clot and cardiopulmonary demise. Despite these risks, she elected to proceed. Findings: There was significant signs of arthritis throughout the knee throughout the knee with large osteophytes. There is significant hypertension of the case leading to bleeding from vasculature throughout the soft tissues which led to the increase in blood loss. Procedure Description: Kelly was greeted in the preoperative holding area where the correct side was identified and marked. The consent was reviewed with the patient and signed. The history and physical was updated. All questions were answered. Preoperative mediacations were administered: Acetaminophen 1000mg, Celebrex 400mg, and Gabapentin 300mg. An adductor canal block was then administered by the anesthesia team in the DSU. Kelly was taken back to the operating room. A general anesthestic was then administered. The patient was placed into the supine position on the operating room table. Posts were placed for positioning during the procedure. All bony prominences were well padded. Prophylactic antibiotics in the form of Cefazolin were administered. 1g of Tranxemic Acid was given intravenously within 30 minutes of incision. The right leg was then prepped with Chloraprep and draped in a standard fashion with impervious stockinette. A second prep with Chloraprep was performed prior to application of Iodine impregnated skin protection. A timeout to confirm correct identity, side and site, procedure, allergies, anesthesia, and medical concerns was performed. With the knee in some flexion, a midline incision was made overlying the knee. Full thickness skin flaps were raised once the extensor mechanism was encountered. These were raised medially and laterally. Any bleeding was controlled with electrocautery. Once the extensor mechanism was fully exposed, a medial parapatellar arthrotomy was performed in a flexed position. All bleeding from the arthrotomy and the geniculate arteries was coagulated. A medial subperiosteal peel was performed with electrocautery to the midcoronal plane. Due to the significant varus deformity the entire medial tibial plateau was exposed. The fat pad was removed while keeping the patellar tendon protected. The anterior distal femur synovium was removed for later visualization. The ACL and PCL were resected and the anterior horn of the lateral meniscus was transected. The knee was then flexed with the patella everted. Large osteophytes from the tibia were removed. Large osteophytes from the femur were removed. A single starting pin was then placed 1cm anterior to the PCL insertion and the notch in the direction of the femoral head. The OrthoAlign device was applied over the pin. It was oriented to be in line with the epicondylar axis and the trochlear groove. It was then pinned into place. The navigation computer was then turned on and calibrated. The distal femur cut was set at 1 degrees varus and 3.5 degrees flexion. The distal femur cutting guide then was positioned for a 9mm cut. The distal femur was cut with an oscillating saw while protecting the soft tissues. The tibia was then addressed. The OrthoAlign device was placed over the tibial tubercle and medial tibia and secured into position. Once again, OrthoAlign was calibrated and then set for a 2 degree varus cut and 5 degrees of posterior slope. With this locked into position, the cut thickness stylus was used to assess cut thickness. The medial side, most involved side, was set for a 3mm cut. This was then held in position and pinned into place with 2 additional pins and a cross pin for stability. The medial and lateral collateral ligaments were protected and the cut was performed. With this completed, it was assessed and noted to be of appropriate dimensions. The guide and OrthoAlign was removed. A spacer block was inserted and the knee was brought into extension to ensure enough space was present. . The Orthoalign gap balancing device was then placed in extension. This was used to ensure that the ligaments were properly balanced with up to 2 to 3 mm laxity laterally compared medially. The extension gap was measured as 19mm. The knee was then brought into 90 degrees of flexion and the ligament underground conduit installer was once again placed. Under the same amount of force the flexion gap was measured. The Attune specific jig was placed and the flexion gap was made to match the extension gap. The femur was then sized as a size 4 Narrow. The 4-in-1 cutting guide was the placed. An dot wing was used to confirm appropriate position of the anterior cut to avoid notching. This cutting guide was ensured to be flush on the cut surface and then pinned into place with headed pins. While protecting the soft tissues, quad tendon, and collateral ligaments, the anterior and posterior cuts were performed with a saw. The central two pins were removed and the posterior and anterior chamfers were cut next. The notch-cutting guide was placed. This was pinned to lateralize the femoral component as much as possible while keeping it flush on the cut surface. This was then pinned into position. A saw was used to make the notch cut. A rasp smoothed the cut surfaces. The medial and lateral menisci were removed. A trial femoral component was then inserted, impacted down to the cut surfaces, and the lug holes were drilled. A provisional trial tibial component was placed and the knee was brought through range of motion. There was noted to be excellent extension and flexion. There was no significant instability. The patella was tracking without thumbs. A size 7mm polyethylene component provided the best range of motion and stability with less than 2mm gapping with medial and lateral stress and full extension without significant hyperextension. The tibial cut surface was fully exposed. The tibia was then sized as a 2. The tibia had been previously marked during trialing to correspond to the center of the tibial component to help with rotation. The trial was aligned to this abad, approximately rotated to the medial 1/3rd of the tibial tubercle. The trial was pinned into place. The tibia was prepared with a reamer and a keel punch and lug holes. The knee was then brought into extension and the patella was measured as 21mm. Using the patellar clamp and cut guide, this was resected to a flat surface with at least 13mm of thickness remaining. The size 32mm patella fit the best. This was oriented and then clamped into position. The lugs were drilled. The trial components were removed. The final components were opened on the back table. The periosteal and capsular tissues, especially posteriorly, around the knee were then systematically injected with a periarticular cocktail consisting of 246mg of Ropivacaine, 0.5mg of Epinephrine, 0.08mg of Clonidine, and 30mg of Ketorolac, diluted to 100cc. On the back table, with the implants opened, the cement was mixed. One batch of high viscosity cement was prepared with vacuum assistance. After the cement was ready a small amount was placed on the cut surface of the patella and the patellar button was clamped into position and held. Then, the knee components were placed. Starting with the tibial component, the tibia was subluxed anteriorly and the lug holes of the component were lined up. The tibia was then impacted with an impactor and mallet until the tibial component was in contact with the tibia. Then, the femoral component was inserted. The lug holes were aligned and the component was impacted into position. The final polyethylene component was inserted. The knee was irrigated with Surgiphor Betadine solution. This was allowed to sit in the knee for 3 minutes and then it was thoroughly irrigated out with saline. After the cement had finally cured, approximately 15min, the clamp was removed from the patella. The knee was then taken through range of motion. The patella was tracking with a no-thumbs technique. The capsule was then reapproximated with a No. 1 Vicryl at multiple locations. The capsule was finally closed with a No. 2 Stratafix, barbed suture. Deep tissues were then reapproximated with 0 Vicryl and 2-0 Vicryl. The skin was closed with a running 3-0 Monocryl in a subcuticular fashion. This was reinforced with skin glue. A Mepilex silver dressing was applied along with a [id number] YASMENE wrap. A CryoCuff was applied. Kelly was transferred to the hospital bed without difficulty an suffering no apparent complication. She has a good prognosis. Physical therapy will start today and without restrictions, weight-bearing as tolerated. Aspirin 81mg BID will be used for DVT prophylaxis. Date of Procedure: 12/06/24
--- NOTE | 2024-12-06 11:45 | W.ANESPRE ---
General Info Date of Service Date Performed: 12/06/24 Height: 4 ft 11 in Weight: 111.7 kg Body Mass Index (BMI): 49.7 Surgical Procedure: Operation Date: 12/06/24 13:10 Proposed Procedure Side Surgeon p Knee Total Arthroplasty w/OrthAlign Right Ousmane To MD Meds Allergies and Home Medications Allergies Allergy/AdvReac Type Severity Reaction Status Date / Time perphenazine (From Trilafon) Allergy Severe Anaphylaxis Verified 12/06/24 10:18 prochlorperazine (From Allergy Severe Anaphylaxis Verified 12/06/24 10:18 Compazine) Home Medication ?Medication ?Instructions ?Recorded ondansetron 4 mg disintegrating 4 mg PO DIRECTED 11/23/23 tablet albuterol sulfate 90 mcg/actuation 2 puff inhalation Q6H PRN 05/08/24 aerosol inhaler cholecalciferol (vitamin D3) 50 50 mcg PO DAILY 05/08/24 mcg (2,000 unit) capsule cyanocobalamin (vitamin B-12) 50 50 mcg PO DAILY 05/08/24 mcg tablet diclofenac sodium 1 % topical gel 2 g topical QID 05/08/24 (Arthritis Pain (diclofenac)) glucose 4 gram chewable tablet 4 g PO Q15M PRN 05/08/24 (Dex4 Glucose) omeprazole 40 mg capsule,delayed 40 mg PO DAILY PRN 07/13/24 release calcium 315 mg (as 1 tab PO BID 10/11/24 citrate)-vitamin D3 5 mcg (200 unit) tablet (Calcium Citrate + D) enalapril maleate 5 mg tablet 5 mg PO DAILY 10/11/24 hydroxyzine HCl 50 mg tablet 50 mg PO BID 10/11/24 lisdexamfetamine 60 mg capsule 60 mg PO DAILY 10/11/24 trazodone 100 mg tablet 100 mg PO DAILY 10/11/24 zolpidem 10 mg tablet 10 mg PO QHS PRN 10/11/24 duloxetine 60 mg capsule,delayed 120 mg PO DAILY 10/20/24 release docusate sodium 100 mg capsule 100 mg PO BID #28 caps 10/25/24 (Colace) acetaminophen 500 mg tablet 1,000 mg (2 x 500 mg) PO Q8H PRN 11/09/24 pain #90 tabs celecoxib 200 mg capsule (Celebrex) 200 mg PO BID PRN pain #60 caps 11/09/24 tramadol 50 mg tablet 50 - 100 mg (1 - 2 x 50 mg) PO Q4H 11/23/24 PRN pain #30 tabs gabapentin 300 mg capsule 300 mg PO QHS #30 caps 12/03/24 cephalexin 500 mg tablet 500 mg PO QID 12/04/24 lorazepam 0.5 mg tablet 0.5 mg PO DIRECTED PRN 12/04/24 aspirin 81 mg tablet,delayed 81 mg PO BID #60 tabs 12/06/24 release celecoxib 200 mg capsule 200 mg PO BID #60 caps 12/06/24 dexamethasone 4 mg tablet 4 mg PO DAILY #2 tabs 12/06/24 docusate sodium 100 mg capsule 100 mg PO BID PRN #28 caps 12/06/24 metoprolol tartrate 25 mg tablet mg 12/06/24 oxycodone 5 mg tablet 5 mg PO Q4H PRN pain #12 tabs 12/06/24 Current Visit Medications: Current Medications Generic Name Dose Route Start Last Admin Trade Name Kiran PRN Reason Stop Dose Admin Acetaminophen 1,000 mg 12/06/24 06:00 12/06/24 10:32 Acetaminophen 500 Mg Tab PO 12/06/24 23:59 1,000 mg PREOP ALEXANDER Administration Acetaminophen 1,000 mg 12/06/24 07:28 Acetaminophen 500 Mg Tab PO 01/05/25 07:27 TID PRN PRN Analgesia Celecoxib 400 mg 12/06/24 06:00 12/06/24 10:32 Celecoxib 200 Mg Cap PO 12/06/24 23:59 400 mg PREOP ALEXANDER Administration Docusate Sodium 100 mg 12/06/24 07:28 Docusate Sodium 100 Mg Cap PO 01/05/25 07:27 BID PRN PRN Constipation Gabapentin 300 mg 12/06/24 06:00 12/06/24 10:33 Gabapentin 300 Mg Cap PO 12/06/24 23:59 300 mg PREOP ALEXANDER Administration Ringer's Solution 1,000 mls @ 80 mls/hr 12/06/24 06:00 12/06/24 10:48 IV 12/06/24 23:59 80 mls/hr INFUSION ALEXANDER Administration Cefazolin Sodium/Dextrose 2 gm in 50 mls @ 100 mls/hr 12/06/24 06:00 Ancef Duplex IVPB 12/06/24 23:59 PREOP ALEXANDER Tranexamic Acid/Sodium Chloride 1,000 mg in 100 mls @ 600 mls/hr 12/06/24 06:00 IVPB 12/06/24 23:59 PREOP ALEXANDER IV Miscellaneous Supplies 1 each 12/06/24 06:00 Iv Access IV 12/06/24 23:59 DIRECTED ALEXANDER Ondansetron HCl 4 mg 12/06/24 07:28 Ondansetron 4 Mg/2 Ml Vial IVP 01/05/25 07:27 Q6H PRN PRN Nausea Oxycodone HCl 0 mg 12/06/24 07:28 Oxycodone 5 Mg Tab PO 01/05/25 07:27 Q3H PRN PRN Pain Polyethylene Glycol 17 gm 12/06/24 07:28 Polyethylene Glycol 3350 17 Gm Packet PO 01/05/25 07:27 BID PRN PRN Constipation Sodium Chloride 0 ml 12/06/24 06:00 Normal Saline Flush 10 Ml Syr IV 12/06/24 23:59 PRN PRN Sodium Chloride 0 ml 12/06/24 06:00 Normal Saline 10 Ml Vial IJ 12/06/24 23:59 DIRECTED PRN Sterile Water 0 ml 12/06/24 06:00 Water,Injection,Sterile 10 Ml Vial IJ 12/06/24 23:59 DIRECTED PRN PFSH Active Problems Active Problems: Problem Status Onset Code History of total left knee replacement Acute 10/25/24 Z96.652 Osteoarthritis of knees, bilateral Acute M17.0 Rupture of right proximal biceps tendon Acute S46.211A Right rotator cuff tear Acute 09/06/23 M75.101 Medical History Medical History Osteoarthritis Morbid (severe) obesity due to excess calories MDD (major depressive disorder) Fibromyalgia Benign hypertensive heart disease without congestive heart failure Weakness TMJ (dislocation of temporomandibular joint) Insomnia GERD (gastroesophageal reflux disease) Left ventricular outflow tract obstruction Rupture of right biceps tendon JAY (generalized anxiety disorder) Trigger finger HTN (hypertension) Anxiety ADD (attention deficit disorder) Depression Tachycardia Per pt. had full [id number]-gm-vcqduat to high dose ADD medication that has since been changed Surgical History Surgical History H/O gastric bypass 11/06/21 Hx of section x2 Hx of exploratory laparotomy Hx of cholecystectomy History of surgery on wrist Hx of tonsillectomy Tobacco Smoking/Tobacco Use Status: Never Passive smoking exposure: No Alcohol Alcohol Intake: current Alcohol intake frequency: a few times a month Alcohol type: wine and other Substance Use Substance use: Never Substance use type: does not use Vital Signs and Lab Results Vital Signs Most Recent Vital Signs in EMR: Most Recent Vital Signs Temp Pulse Resp BP Pulse Ox 36.2 C L 88 18 131/78 99 12/06/24 10:08 12/06/24 10:08 12/06/24 10:08 12/06/24 10:08 12/06/24 10:08 Imaging and Studies Imaging and Studies Study information below may be from another EMR and interpreted by another provider. Please see original notes in EMR for more complete details. EKG Summary: EKG PATIENT NAME: Kelly Song UNIT #: [id number] ORDERING PROVIDER: Dannielle Kimble M.D. PRIMARY CARE PROVIDER: DONALD FELDMAN DO DATE/TIME OF SERVICE: 11/28/23 0253 : 1970 PERFORMING LOCATION: ER APPROVED REPORT Exam: Resting ECG Reason for Exam: chest pain Patient Location: E HR:87 bpm ECG Measurements Heart Rate 87 AXIS DC 148 P 56 QRSd 76 QRS 11 QT 331 T35 QTc 399 Conclusion Sinus rhythm...normal P axis, V-rate 60- 99 Normal Electrocardiogram <Electronically signed by DANNIELLE KIMBLE MD in [facility]> E-Sign Date: 11/28/23 E-Sign Time: 335 ADDENDUM APPROVED REPORT Exam: Resting ECG Reason for Exam: chest pain Patient Location: E HR:87 bpm ECG Measurements Heart Rate 87 AXIS DC 148 P 56 QRSd 76 QRS 11 QT 331 T35 QTc 399 Conclusion Sinus rhythm...normal P axis, V-rate 60- 99 Normal Electrocardiogram I have reviewed and I agree with the emergency room physician's ECG interpretation. Electronically signed by: <Electronically signed by Vivi Gamino M.D. in [place]> 12/02/23 0922 Cosigned by: Anesthesia Assessment and Plan Anesthesia History Personal History: Delayed Emergence Family History: No Family History of Anesthesia Complications Exercise Tolerance Exercise Tolerance: Metabolic Equivalents>4 Pertinent Negatives Pertinent Negatives: No Symptoms of GERD, No Major Cardiovascular Symptoms or Complaints (Hx of Tachycardia at rest, started on metoprolol with improvement), No Major Pulmonary Symptoms or Complaints and No History of CVA/TIA Cardiac & Pulmonary Exam Cardiac Exam: Normal S1/S2 Heart Sounds Pulmonary Exam: Clear Bilateral Breath Sounds Implantable Cardiac Device Does patient have a Pacemaker or an ICD?: No Airway Exam Known Difficult Airway: No Mallampati Class: 1 Mouth Opening: Normal (> 3cm) Thyromental Distance: Greater than 3 cm Facial Hair: Full [place] Neck Range of Motion: Full ROM Neck Circumference: Thick Teeth Condition: Generalized Poor Dentition and Advised tooth loss possible given current condition (indicate tooth) Airway Comments: multiple missing teeth, mainly 01/19, multiple cracked teeth. Generally poor dentition ASA Classification ASA Score: ASA 3 Emergency Case?: No NPO Status NPO Status: NPO Clears >2 hours, Solids >8 hours Status Status: Negative HCG Anesthesia Plan Resuscitation Status: Full Code Anesthesia Technique: General Anesthesia Airway Planned: Endotracheal Tube Pain Management: Surgeon and patient request nerve block Monitors Used: Standard Monitors and SedLine
[2024-12-06] MEDS: TRANEXAMIC ACID/SOD. CHL. 1,000 MG/100 ML BAG 600 MG IVPB (12:00)
[2024-12-06] MEDS: ceFAZolin 2 GM/50 ML BAG IVPB (12:05)
--- NOTE | 2024-12-06 12:42 | ANES.NERVE_ITS ---
Nerve Block Single Injection Procedure Date and Time Date Performed: 12/06/24 Procedure Start: 11:13 Location Where Procedure Performed Procedure Location: Day Surgery Unit Reason Performed: Postoperative Analgesia Requesting Provider: Ousmane To Timeout Performed Timeout Performed: Yes Monitoring Used ECG, Blood Pressure, SpO2 and See EMR for corresponding vital signs Sterility Sterility: Hand Hygiene, Surgical Cap, Surgical Mask, Sterile Gloves and Chlorhexidine Sedation Given During Procedure Sedation Given (Indicate Dose Given): Versed IV Dose:: 5mg Patient Mental Status Patient Mental Status: Awake Nerve Block 1st Nerve Block: Laterality: Right Block Type: Adductor Canal Ultrasound Image Saved?: Yes Needle / Catheter Used: 120mm SonoPlex II Local Anesthetic Bolus (Indicate Dose Given): Lidocaine used for local infiltration of skin, Bupivacaine 0.25% Dose:: 10ml and Exparel Dose:: 10ml Additives (Indicate Dose Given): None Ultrasound: Sterile probe cover and gel used Nerve Stimulator: Supplement to Ultrasound use and No twitch or parast hesia noted < 0.5 mA Paresthesia: None Procedure Tolerated: Patient tolerated well Procedure Outcome: Successful Performed By: Mary Ann Sullivan Supervised By: Prince Loera
[2024-12-06] MEDS: Droperidol 5 MG/2 ML VIAL 0.625 MG IVP (14:31)
--- NOTE | 2024-12-06 14:34 | W.ANESPOSTOP ---
Postoperative Evaluation Date, Time and Location Date Performed: 12/06/24 Time Performed: 14:35 Patient Location: PACU Vital Signs Most Recent Imported Vital Signs: Most Recent Vital Signs Temp Pulse Resp BP Pulse Ox 36.3 C L 78 18 100/37 L 96 12/06/24 14:26 12/06/24 14:26 12/06/24 14:26 12/06/24 14:26 12/06/24 14:26 Pain Score Most Recent Pain Score: Most Recent Pain Score Pain Level 0 12/06/24 14:26 Assessment Mental Status: Awake (Alert & Oriented to Patient Baseline) Airway and Respiratory Function: Patent airway with normal (patient baseline) respiratory exam Cardiovascular Function: Hemodynamically Stable Hydration Status: Adequately Hydrated Nausea & Vomiting: No Nausea or Vomiting Pain: Pain is tolerable per patient Peripheral Nerve Block: Regional nerve block not resolved at time of post operative discharge
[2024-12-06] MEDS: fentaNYL 100 MCG/2 ML VIAL IVP (14:35)
[2024-12-06] MEDS: oxyCODONE 5 MG TAB PO (15:29)
[2024-12-06] MEDS: Tranexamic Acid 650 MG TAB 1300 MG PO (15:29)
--- NOTE | 2024-12-06 16:57 | IN_ITS ---
PT Notes Visit Reasons: R TKR Physical Therapy Day Surgery Initial Evaluation Date: 12/06/2024 Referring Doctor: [SALAZAR Barnett/Dr. To PT Orders: PT CONSULT: PT evaluation and treat status post Ortho surgery Precautions: Weightbearing as tolerated right lower extremity Patient Profile/Admitting Diagnosis: Kelly is a 54-year-old female presenting status post elective right TKA under general anesthesia on 12/06/2024. Patient with approximately 600 mL blood loss with elevated BPs during surgery. Postop complicated by level of grogginess and weakness. PMHX: Osteoarthritis Morbid (severe) obesity due to excess calories MDD (major depressive disorder) Fibromyalgia Benign hypertensive heart disease without congestive heart failure Weakness TMJ (dislocation of temporomandibular joint) Insomnia GERD (gastroesophageal reflux disease) Left ventricular outflow tract obstruction Rupture of right biceps tendon JAY (generalized anxiety disorder) Trigger finger HTN (hypertension) Anxiety ADD (attention deficit disorder) Depression Tachycardia Surgical History (Updated 10/19/24 @ 11:56 by Omar Espinoza) H/O gastric bypass 11/06/21Hx of section x2Hx of exploratory laparotomy Hx of cholecystectomy History of surgery on wrist Hx of tonsillectomy Social History/Home Situation: resides in an apt no steps to enter, sleeps in recliner, independent ambulation and ADL, drives. Daughter staying with her until December. Equipment Owned/DME: FWW, cane, lift recliner Subjective: Patient reports she feels very weak and tired knee is more painful than her left knee surgery 6 weeks ago Objective: [] General Observation: Semireclined on stretcher with her mom present Cryo/Cuff to right knee , eyes closed Mental Status: Patient is alert and oriented x 4, groggy difficulty keeping eyes open, able to follow instructions agreeable to participate Pain: Right knee 4.5/10 after medication ROM: [] Right Upper Extremity: WFL Left Upper Extremity: WFL Right Lower Extremity: Hip and ankle within functional limits knee 0 to 75 degrees Left Lower Extremity: Knee 0 to 100 degrees hip and ankle within functional limits Strength: [] BUE grossly 5/5 Right Lower Extremity: Hip flexion: 3 -/5; hip abduction: 2+/5; hip extension: 3 -/5; knee extension: 3-/5; knee flexion: 2+/5 ankle DF: 3/5 ; ankle PF: 3/5; patient demonstrates quad set however unable to hold contraction greater than 2 seconds. Unable to perform shortened range straight leg raise without lag Sensation: Intact Bed Mobility/Transfers: [] Supine to sit min assist for lower extremity Sit to stand CGA Stand to sit CGA Bed to chair min assist with FWW Gait: Patient able to take 10 steps with FWW demonstrating impaired knee flexion bilaterally, circumduction right lower extremity to advance, increased weightbearing through bilateral upper extremities to unweight right lower extremity. Stairs N/A Balance: [] Static Sitting: Good Dynamic Sitting: Fair Static Standing: Fair with upper extremity support Dynamic Standing: Fair minus with upper extremity support Special Tests: [] Mobility Limitations Standardized Measure [] [facility] AM-PAC 6 clicks Basic Mobility Inpatient Short Form: [] Raw Score: 16 CMS Score: 54.16% deficit Informed Consent/Education: Patient instructed in purpose of PT consult. Packet containing exercise protocol has been given to patient. Education and training on initial set of exercises that can be done at home have been c ompleted with patient. Treatment: 37798 Sit to/from stand x 4 trials with FWW CGA Chair to chair with FWW CGA Chair to bed with FWW CGA Sit to supine with min assist for lower extremity Assessment: Patient presents with impaired functional activity tolerance difficulty staying alert to participate in full ambulatory assessment. Status discussed with Dr. To patient to be admitted overnight. Given patient's AM-PAC score patient high risk for readmission if discharged to community. Patient presents with clinical signs and symptoms consistent with current/admitting diagnoses that have resulted to mobility limitations, gait instability, generalized weakness, and impairment of motor control as demonstrated by the following impairment level findings: 1. Decreased strength to right knee major muscle groups 2. Impaired standing balance 3. Limitation of joint range of motion in bilateral knee right greater than left 4. Impaired functional activity tolerance 5. Pain right knee Impairments are contributing to the following functional limitations: 1. Inability to safely ambulate without assistive device 2. Increase completion time for mobility ADL performance 3. Increased fall risk 4. Impaired transfer ability 5. Impaired bed mobility 6. AM-PAC score of 16 indicating 54.16% deficit Patient is assessed as a low complexity based on the following: History: 54-year-old female with impairment level findings, functional limitations, and past medical history as indicated above Examination: Demonstrable impairment in strength, balance, and mobility level with underlying impairments and functional limitations as documented above Presentation: Evolving Decision Making: Low Goals: PT evaluation and 1-2 treatment sessions only for functional mobility training using recommended AD and for HEP instruction. Plan of Care/Treatment Plan: PT evaluation and 1-2 treatment session only for functional mobility training using recommended AD and for HEP instruction. DISCHARGE RECOMMENDATIONS: Home with HEP and outpatient PT as scheduled when medically appropriate TREATMENT CODE/TIME: 19146, [id number], [id number] Thank you for the opportunity to participate in the care of this patient. Pidead Sales, PT [facility]
[2024-12-06] MEDS: ceFAZolin 1 GM/50 ML BAG IVPB (17:55)
[2024-12-06] MEDS: Celecoxib 200 MG CAP PO (19:49)
[2024-12-06] MEDS: Omeprazole 20 MG CAPCR 40 MG PO (19:50)
[2024-12-06] MEDS: Normal Saline Flush 10 ML SYR IV (19:50)
[2024-12-06 20:17] LABS: HCT 34.3 % (36.0-46.0); HGB 10.5 g/dL (11.2-15.7)
[2024-12-07] MEDS: ceFAZolin 1 GM/50 ML BAG IVPB ×2 (01:52→10:12)
[2024-12-07] MEDS: Normal Saline Flush 10 ML SYR IV (01:53)
[2024-12-07 02:00] VITALS: BP 130/80; PULSE 91; RESP 20; TEMP 36.9; O2SAT 93
[2024-12-07] MEDS: oxyCODONE 5 MG TAB PO ×3 (02:53→11:54)
[2024-12-07] MEDS: Acetaminophen 500 MG TAB 1000 MG PO ×2 (02:54→07:58)
[2024-12-07 06:17] LABS: HCT 28.9 % (36.0-46.0); HGB 9.0 g/dL (11.2-15.7); MCH 28.0 pg (27.0-33.0); MCHC 31.1 % (32.0-36.0); MCV 90 fL (80-95); MPV 9.8 fL (8.0-11.0); Platelet Count 349 10^3/uL (130-400); RBC 3.21 10^6/uL (3.93-5.22); RDW 12.3 % (11.7-14.6); RDW-SD 40.7 fL; WBC 13.14 10^3/uL (4.4-10.8)
[2024-12-07 06:32] LABS: Anion Gap 8.6 mmol/L (3-11); BUN 14 mg/dL (7-18); CO2 27.4 mmol/L (21.0-32.0); Calcium 8.5 mg/dL (8.5-10.1); Chloride 107 mmol/L (98-107); Estimated GFR 104.00 (mL/min/1.73m2); Glucose 112 mg/dL (74-106); Potassium 4.1 mmol/L (3.5-5.1); Sodium 143 mmol/L (136-145)
[2024-12-07 07:35] VITALS: BP 133/88; PULSE 98; RESP 16; TEMP 37.4; O2SAT 98
[2024-12-07] MEDS: DULoxetine 30 MG CAP 120 MG PO (07:58)
[2024-12-07] MEDS: Enalapril 5 MG TAB PO (07:58)
[2024-12-07] MEDS: Dexamethasone 4 MG TAB PO (07:59)
[2024-12-07] MEDS: Celecoxib 200 MG CAP PO (07:59)
--- NOTE | 2024-12-07 08:39 | INITIAL_ITS ---
Date of service: 12/07/24 Time of Service: 08:39 Care Management Initial Assmt Initial Assessment Reason for Hospitalization: R TKR Functional Status/Living Situation Patient Presentation: Kelly was awake and sitting in a recliner when CM met with her. She was polite and easily engaged in conversation. She is s/p right TKR and reports feeling well. She feels prepared for recovery, as she recently underwent surgery for a left TKR. Kelly plans to discharge home this afternoon, her daughter will provide transportation. She expressed great appreciation for Dr. To Town of Residence: [place] Resides with: Child (2 daughters) Natural Supports: Children Employment Status: Other (On leave (Workers Comp) due to unrelated issue involving her shoulder) Instrumental Activities of Daily Living (ADLs): Independent Medications Medication Management: No Issues/Barriers identified Physical Functioning/Mobility Assistive Device: Walker-PRN Advance Directives Advance Directives: Do you have an Advance Directive: N , 13:10 AD On File at [facility]: N 11/30/24, 13:10 Date Asked 12/06/24 Today, 07:10 AD Date Reviewed COLST On File at [facility] COLST Date Scanned Code Status Resuscitation Status Full Code Insurance Coverage/Financial Issues Insurance: [facility] plan only - [id number] Care Team Visit Care Team Role Provider Type Patricia Mckay Primary Care Provider OSTEOPATHIC DOCTOR [facility] Other Providers OTHER Ousmane To MD Admit Provider [facility] STAFF PHYSICIAN Attending Provider Discharge Potential Discharge Needs: Other (F/U with Ortho) Anticipated Barriers to Discharge: None Identified Patient/Family Education Needs: Review discharge instructions, discuss Ask Me Three Transportation: Private vehicle Plan: Kelly will discharge home via private vehicle with family when medically cleared for discharge. Patient will follow up with community providers and continue per her discharge plan of care. No new services are anticipated on discharge. CM will follow. Social Determinants of Health Screening Social Determinants of health last assessed in clinic: 12/07/24 Will the Patient Participate in the Screening?: Yes Do you worry about having a steady place to live?: no Problems where you live: no known problems In the past 12 months, have you had to go without electric, gas, oil or water in your home?: no 1. Within the past 12 months, we worried whether our food would run out before we got money to buy more.: Never true 2. Within the past 12 months, the food we bought just didn't last and we didn't have money to get more.: Never true Has lack of transportation kept you from medical appointments or from doing things needed for daily living?: no Has anyone in your life made you feel unsafe or unsupported?: no How hard is it for you to pay for the very basics like food, housing, medical care, and heating? Would you say it is:: Not hard at all Do you want help finding or keeping work or a job?: I do not need or want help If for any reason you need help with day-to-day activities such as bathing, preparing meals, shopping, managing finances, etc., do you get the help you need?: I don?t need any help How often do you feel lonely or isolated from those around you?: Never Do you speak a language other than Thai at home?: No Does the patient want assistance with any of the above?: No PFSH All Active Problems History of total left knee replacement (Acute 10/25/24) Osteoarthritis of knees, bilateral (Acute) Rupture of right proximal biceps tendon (Acute) Right rotator cuff tear (Acute 09/06/23) s/p Right shoulder arthroscopy with rotator cuff repair (subscapularis & supraspinatus, extensive debridement, subacromial decompression, and open biceps tenodesis (proximal rupture repair) 11/25/23 Medical History Osteoarthritis Morbid (severe) obesity due to excess calories MDD (major depressive disorder) Fibromyalgia Benign hypertensive heart disease without congestive heart failure Weakness TMJ (dislocation of temporomandibular joint) Insomnia GERD (gastroesophageal reflux disease) Left ventricular outflow tract obstruction Rupture of right biceps tendon JAY (generalized anxiety disorder) Trigger finger HTN (hypertension) Anxiety ADD (attention deficit disorder) Depression Tachycardia Per pt. had full [id number] to high dose ADD medication that has since been changed Surgical History H/O gastric bypass 11/06/21 Hx of section x2 Hx of exploratory laparotomy Hx of cholecystectomy History of surgery on wrist Hx of tonsillectomy Social History Smoking/Tobacco Use Status: Never Smoking risk assessment performed?: Yes Alcohol Intake: current Alcohol Intake frequency: a few times a month Alcohol type: wine and other Drug use: Never Substance use type: does not use Housing: apartment Do you feel safe at home: Yes Do you feel safe in your relationship?: Yes
--- NOTE | 2024-12-07 09:07 | DSE_ITS ---
Date of service: 12/07/24 Time of Service: 09:07 DS: Diagnosis Discharge Diagnosis (1) Osteoarthritis of knees, bilateral: Status: Acute Discharge Plan Disposition Patient Disposition: Home Condition: Good Discharge Details Reason For Visit: OA R Knee Admit Date/Time: 12/06/24 07:29 Admit Provider: Ousmane To Attending Provider: Ousmane To Primary Care Provider: Patricia Mckay Hospital Course Hospital Course: Patient was admitted to the medical/surgical floor following the procedure. The surgery was tolerated well without any notable medical, surgical, or anesthetic complications except for more bleeding than expected. Follow-up labs showed post-op anemia, Hgb from 13 to 9. Mobilization began postoperatively. She was voiding spontaneously. Vitals were stable. Physical therapy worked with the patient and was cleared for discharge home. No acute medical issues. Pain was controlled on oral regimen. Home Meds and New Rx's Prescriptions: New oxycodone 5 mg tablet 5 mg PO Q4H MDD 6 tabs PRN (Reason: pain) Qty: 12 0RF celecoxib 200 mg capsule 200 mg PO BID Qty: 60 0RF aspirin 81 mg tablet,delayed release (DR/EC) 81 mg PO BID Qty: 60 0RF acetaminophen 500 mg tablet 1,000 mg PO TID Qty: 90 3RF dexamethasone 4 mg tablet 4 mg PO DAILY Qty: 2 0RF gabapentin 300 mg capsule 300 mg PO QHS Qty: 14 0RF docusate sodium 100 mg capsule 100 mg PO BID PRNQty: 28 0RF ferrous fumarate 324 mg (106 mg iron) tablet 324 mg PO DAILY Qty: 30 0RF Continued albuterol sulfate 90 mcg/actuation HFA aerosol inhaler 2 puff inhalation Q6H PRN cholecalciferol (vitamin D3) 50 mcg (2,000 unit) capsule 50 mcg PO DAILY cyanocobalamin (vitamin B-12) 50 mcg tablet 50 mcg PO DAILY diclofenac sodium [Arthritis Pain (diclofenac)] 1 % gel 2 g topical QID Rx Instructions: apply to single elbow, wrist or hand; for hand includes palm/fingers/back of hand glucose [Dex4 Glucose] 4 gram tablet,chewable 4 g PO Q15M PRN Rx Instructions: until symptoms of low blood sugar are controlled omeprazole 40 mg capsule,delayed release(DR/EC) 40 mg PO DAILY PRN gabapentin 300 mg capsule 300 mg PO QHS Qty: 30 0RF calcium citrate-vitamin D3 [Calcium Citrate + D] 315 mg-5 mcg (200 unit) tablet 1 tab PO BID enalapril maleate 5 mg tablet 5 mg PO DAILY hydroxyzine HCl 50 mg tablet 50 mg PO BID lisdexamfetamine 60 mg capsule 60 mg PO DAILY trazodone 100 mg tablet 100 mg PO DAILY zolpidem 10 mg tablet 10 mg PO QHS PRN duloxetine 60 mg capsule,delayed release(DR/EC) 120 mg PO DAILY celecoxib [Celebrex] 200 mg capsule 200 mg PO BID PRN (Reason: pain) Qty: 60 0RF Rx Instructions: Take one tablet twice daily for pain and inflammation tramadol 50 mg tablet 50 - 100 mg PO Q4H MDD 8 tabs PRN (Reason: pain) Qty: 30 0RF docusate sodium [Colace] 100 mg capsule 100 mg PO BID Qty: 28 0RF lorazepam 0.5 mg tablet 0.5 mg PO DIRECTED PRN Patient Comments: TAKE 1 TABLET BY MOUTH DAILY NEEDED FOR ANXIETY cephalexin 500 mg tablet 500 mg PO QID ondansetron 4 mg tablet,disintegrating 4 mg PO DIRECTED Patient Comments: dissolve 1 tablet on top of the tongue every 8 hours if needed for nausea and vomiting Discontinued acetaminophen 500 mg tablet 1,000 mg PO Q8H PRN Qty: 90 0RF Rx Instructions: Take two tablets up to every 8 hours as needed for pain No Action metoprolol tartrate 25 mg tablet Patient Comments: take 1/2 tablet by mouth twice a day Discharge Instructions Additional Instructions: Total Knee Discharge Instructions Activity: The most important activity is to walk and to work on gentle motion (both flexion and extension). You should try to take short walks a few times a day. It is important that when resting you work on keeping the knee straight. Avoid putting a pillow behind the knee as this will encourage flexion. Work on range of motion exercises as provided by Physical Therapy. - Start outpatient physical therapy within 2 weeks. - You should wear the TETE hose on both legs for 2 weeks. You may remove these at night. You may also use any compression sock in place of the TETE hose. - Utilize [employer] to review exercises, see videos on exercises and obtain basic information pertaining to your surgery and your recovery. Dressing: Remove the Estrada wrap by 2 days after your surgery and put on the TETE stocking given to you from the hospital. Keep the surgical dressing (underneath the ESTRADA wrap) in place for at least one week. After the first week it may be removed and replaced with light gauze and tape or nothing. The wound and dressing may get wet after 3 days but avoid soaking the dressing or otherwise it will need to be changed. Many people prefer covering the dressing with cling wrap (saran wrap) to minimize it from getting soaked. If it gets wet, just pat dry. If it starts to peel off then it will need to be changed. Medications: - You should take Tylenol and anti-inflammatory Celebrex as your primary pain control medications. If the Celebrex is too expensive or not covered, please call the office for another alternative (Advil/Ibuprofen or Naproxen/Aleve) - You have been prescribed a stronger pain medication Oxycodone for breakthrough pain, take as needed as prescribed. - You will continue your omeprazole to help reduce stomach acid and reflux. - You have been prescribed Gabapentin to take at night for restlessness and nerve pain. - You will be taking Aspirin 81mg twice a day for DVT prevention unless instructed otherwise. - You have also been prescribed Decadron to take to control post-operative nausea and pain. You will start this tomorrow. - If you have constipation you should take Colace or Miralax (both [id number]). It takes most people 3-4 days to have a bowel movement. Follow-up: 2 weeks If you have any acute concerns or questions, please do not hesitate to contact the office at [phone]. You may contact Dr. To with any questions after hours through the hospital at [phone] or on his cell phone at [phone]. Stand Alone Forms: Anesthesia Discharge Inst., [facility].Nerve Block Instructions, Dimas Ortiz ([facility]) Referrals: Ousmane To MD [ [facility] PHYSICIAN, Orthopaedic Surgical] - 12/21/24 3:00 pm Activity:: Activity as Tolerated Equipment/Supplies:: Walker Diet:: As Tolerated Discharge Orders Discharge Orders: Discharge Order (Routine); Ordered 12/07/24 Ordered By: Ousmane G Prohaska DS: Summary Time Spent with Patient providing and/or coordinating discharge services: Less than 30 minutes Status at Discharge Functional status at discharge: uses cane/walker Overall status at discharge: patient is back to baseline Mental Status: mental status grossly normal Speech and Movement: speech and movement normal Mood: congruent mood Affect: normal affect Exam Narrative Exam Narrative: Sitting on the edge of the bed. Right knee dressing c/d/i. Able to SLR. Knee ROM is 5-80. Stable to varus/valgus stress. +ADF/APF/EHL/FHL SILT DP/SP/Tib. Psych Mental Status: mental status grossly normal Speech and Movement: speech and movement normal Mood: congruent mood Affect: normal affect DS: Data Vitals/I&O Vitals and I&O: Vital Signs Temperature 37.4 C 12/07/24 07:35 Temperature Source Temporal Artery Scan 12/07/24 07:35 Pulse 98 H 12/07/24 07:35 Pulse Rhythm Regular 12/06/24 18:00 Respiratory Rate 16 12/07/24 07:35 Respiratory Depth Normal 12/06/24 10:08 Blood Pressure 133/88 12/07/24 07:35 Blood Pressure Mean 103 12/07/24 07:35 Blood Pressure Position Supine 12/06/24 11:00 Pulse Oximetry 98 12/07/24 07:35 Respiratory End-tidal CO2 42 12/06/24 14:51 Oxygen Delivery Method Room Air 12/07/24 07:35 Oxygen Flow Rate 0 12/07/24 07:35 Pain Level 6 12/07/24 07:59 Comment Pt asleep. 12/07/24 04:00 Intake & Output 12/06/24 12/06/24 12/07/24 11:59 23:59 11:59 Intake Total 1564.667 / 1564.667 490 / 490 Output Total 600 / 600 Balance 964.667 / 964.667 490 / 490 Weight 111.7 kg Intake: IV 1144.667 / 1144.667 50 / 50 Oral 420 / 420 440 / 440 Output: Emesis 0 / 0 Estimated Blood Loss 600 / 600 Other: Urine Color Yellow Urine Appearance Clear Urine Odor None Comment pt voids to toilet. Emesis Description None Data Completed and Pending Labs on day of discharge: Labs from last 24 hours 12/07/24 12/06/24 05:36 20:11 WBC 13.14 H RBC 3.21 L Hgb 9.0 L 10.5 L Hct 28.9 L 34.3 L MCV 90 MCH 28.0 MCHC 31.1 L RDW 12.3 Plt Count 349 MPV 9.8 Sodium 143 Potassium 4.1 Chloride 107 Carbon Dioxide 27.4 Anion Gap 8.6 BUN 14 Creatinine 0.7 Est GFR (CKD-EPI 2020) 104.00 Glucose 112 H Calcium 8.5 PFSH All Active Problems History of total left knee replacement (Acute 10/25/24) Osteoarthritis of knees, bilateral (Acute) Rupture of right proximal biceps tendon (Acute) Right rotator cuff tear (Acute 09/06/23) s/p Right shoulder arthroscopy with rotator cuff repair (subscapularis & supraspinatus, extensive debridement, subacromial decompression, and open biceps tenodesis (proximal rupture repair) 11/25/23 Medical History Osteoarthritis Morbid (severe) obesity due to excess calories MDD (major depressive disorder) Fibromyalgia Benign hypertensive heart disease without congestive heart failure Weakness TMJ (dislocation of temporomandibular joint) Insomnia GERD (gastroesophageal reflux disease) Left ventricular outflow tract obstruction Rupture of right biceps tendon JAY (generalized anxiety disorder) Trigger finger HTN (hypertension) Anxiety ADD (attention deficit disorder) Depression Tachycardia Per pt. had full iiqh-ox-caivyds to high dose ADD medication that has since been changed Surgical History H/O gastric bypass 11/06/21 Hx of section x2 Hx of exploratory laparotomy Hx of cholecystectomy History of surgery on wrist Hx of tonsillectomy Social History Smoking/Tobacco Use Status: Never Smoking risk assessment performed?: Yes Alcohol Intake: current Alcohol Intake frequency: a few times a month Alcohol type: wine and other Drug use: Never Substance use type: does not use Housing: apartment Do you feel safe at home: Yes Do you feel safe in your relationship?: Yes Time Spent with Patient Time Spent with Patient: <45 minutes Time was spent: preparing to see the patient(eg.review tests), obtaining and/or reviewing separately otained hiistory, ordering medications,tests, procedures and referring, communicating with other health rn complex care
--- NOTE | 2024-12-07 09:45 | PDOC.CMDIS ---
Date of service: 12/07/24 Time of Service: 09:45 LACE Index Scoring Tool Questions: Length of Stay (in days): 1 Was the patient admitted via the E.D.?: No E.D. Visits: 0 Answers: Total Score: 1 Risk of Readmission: Low Risk Care Management Discharge Plan Reason for Hospitalization: R TKR Discharge Plan: Kelly is discharged home via private vehicle with family. She will follow up with community providers and continue per her discharge plan of care. No new services are ordered on discharge. Patient/Family Education Needs: Review discharge instructions and plan to follow up post-discharge. Discuss ask me three.
--- NOTE | 2024-12-07 10:40 | PTTR_ITS ---
PT Notes Visit Reasons: OA R Knee Inpatient Physical Therapy Treatment Note [facility] Date: 12/07/2024 PRECAUTIONS: WBAT right LE, standard SUBJECTIVE: Patient reports she was incoherent until 8 PM last night. She states she was able to walk to the bathroom during the night with nursing with the use of her walker. She states she feels much better and is looking forward to going home today OBJECTIVE: Patient presented initially semireclined in bed Cryo/Cuff to right knee. Second session patient presented reclined in recliner.? PAIN: 3/10 after pain meds VITALS: ?133/88, 98 bpm Therapeutic Activities ([id number][]): Direct one-on-one instruction in dynamic activities to improve functional performance. ? BED MOBILITY/TRANSFERS? Supine-sit: Min assist for lower extremity ( pt sleeps in recliner at home)? Sit-supine: Min assist for lower extremity ( pt sleeps in recliner at home) ? Sit-stand: SBA ? Stand-sit: SBA ? Bed-toilet: SBA with FWW ? toilet?chair: SBA with FWW Provided skilled cues and instruction on performance and technique throughout. ? Therapeutic Exercises ([id number][]): Direct one-on-one instruction in therapeutic exercises to develop strength, endurance, range of motion and flexibility. ? Exercises ?Ankle Pumps with 3 sec hold 10 reps, heelslides 10 reps with hold Quad sets10 reps with 3 sec hold, , SLR( short range) 2 sets 5 reps Seated knee flexion / heelslide 5 reps with 3 sec hold. Ambulation ? Assistive Device: FWW? Weight bearing: WBAT RLE Assist: SBA ? Distance:?45 feet x 2 ? Deviation: impaired knee flexion B, circumduction B with wide JUANA ? Provided skilled instruction in proper exercise performance ASSESSMENT:?Progression with ambulation with FWW to 45 feet with standby assist. Patient sleeps in recliner at home therefore need for assist during bed mobility will not be an issue upon discharge. Patient able to perform HEP without cues for technique however required encouragement to perform knee fle xion in sitting. As patient preference is to keep knees fully extended at all times. Cryo/Cuff applied to right knee at end of session. Patient seen by MD during first session with anticipated discharge to home later today. PLAN: Continue with strengthening and functional mobility with FWW until discharged home TREATMENT CODE/TIME: First session: [id number]/[id number] Second session: 91043/ [id number] DISCHARGE RECOMMENDATION: Home with HEP and outpatient PT as scheduled
== END 2024-12-07 12:37 | disposition home or self-care (01) ==
LOC: MS 12-07 07:10 → SUR 12-07 07:11 → MS 12-07 07:11
PROVIDERS: Admitting Provider Student in an Organized Health Care Education/Training Program; PCP Family Medicine; Responsible Provider Student in an Organized Health Care Education/Training Program; Visit Provider Student in an Organized Health Care Education/Training Program
PROC: (CPT 27447; principal; 2024-12-06 13:00)
DX: M17.11 Unilateral primary osteoarthritis, right knee (principal); E66.01 Morbid (severe) obesity due to excess calories; F33.9 Major depressive disorder, recurrent, unspecified; G47.00 Insomnia, unspecified; K21.9 Gastro-esophageal reflux disease without esophagitis; F41.1 Generalized anxiety disorder; R53.1 Weakness; Z98.84 Bariatric surgery status; F90.9 Attention-deficit hyperactivity disorder, unspecified type; Z79.899 Other long term (current) drug therapy; Z96.652 Presence of left artificial knee joint; Z68.42 Body mass index [BMI] 45.0-49.9, adult; G89.18 Other acute postprocedural pain; M25.561 Pain in right knee
CPT/HCPCS: 27447; 20985; 36415; 64447; 80048; 85027; 97110; 97161; 97530; 85014; 85018; C1776; G0378; J0665; J0666; J0690; J1100; J1790; J2250; J2371; J2405; J2598; J2704; J3010; J3475; J8540

== ENCOUNTER 2024-12-21 16:02 | Outpatient (CLI) | payer MEDICAID, SELFPAY ==
--- NOTE | 2024-12-21 15:15 | DI.RAD_ITS ---
Exam(s) XR KNEE RT 1V XR STANDING ALIGNMENT EXAM: XR STANDING ALIGNMENT CLINICAL HISTORY: 1ST POST OP S/P R TKA. TECHNIQUE: 2D digital imaging was performed. Standing AP views were performed from the pelvis through the ankles. COMPARISON: CR XR STANDING ALIGNMENT from 11/09/2024 CR XR KNEE LT 1V from 11/09/2024 CR XR KNEE RT 1V from 12/21/2024 FINDINGS: BONES: No acute fracture is present. No bony destructive lesion is seen. Leg length discrepancy: No significant overall leg length discrepancy. JOINTS: Knees: Bilateral total knee prostheses. The right knee prosthesis is new since the previous exam. The left knee prosthesis appear stable. Ankles: Mild narrowing of the medial tibiotalar joint space on the left. Mild spurring of both malleoli. The hip joints are not well seen due to under penetration but appear grossly maintained. SOFT TISSUE: Normal. IMPRESSION: Bilateral total knee prostheses. No significant leg length discrepancy. DATA REPOSITORY: RADIATION DOSE DELIVERED:
== END 2024-12-21 16:03 | disposition home or self-care (01) ==
LOC: DIORS 16:02
PROVIDERS: PCP Family Medicine; Visit Provider Student in an Organized Health Care Education/Training Program
DX: Z96.651 Presence of right artificial knee joint (principal); Z96.652 Presence of left artificial knee joint
CPT/HCPCS: 73560; 77073

== ENCOUNTER 2025-02-28 06:15 | Day surgery (SDC) | payer MEDICAID, SELFPAY ==
[2025-02-28] VITALS (14 sets, daily range): BP systolic 111–152; BP diastolic 52–80; PULSE 78–105; RESP 13–25; TEMP 36.5–37; O2SAT 95–98; BMI 53.4
[2025-02-28] MEDS: Celecoxib 200 MG CAP 400 MG PO (06:48)
[2025-02-28] MEDS: Acetaminophen 500 MG TAB 1000 MG PO (06:48)
[2025-02-28] MEDS: Lactated Ringers 1,000 ML 80 ML IV (07:00)
--- NOTE | 2025-02-28 07:06 | W.ANESPRE ---
General Info Date of Service Date Performed: 02/28/25 Height: 4 ft 11 in Weight: 120 kg Body Mass Index (BMI): 53.4 Surgical Procedure: Operation Date: 02/28/25 07:40 Proposed Procedure Side Surgeon p Knee Manipulation of Knee Right Ousmane To MD Meds Allergies and Home Medications Allergies Allergy/AdvReac Type Severity Reaction Status Date / Time perphenazine (From Trilafon) Allergy Severe Anaphylaxis Verified 02/28/25 06:35 prochlorperazine (From Allergy Severe Anaphylaxis Verified 02/28/25 06:35 Compazine) Home Medication ?Medication ?Instructions ?Recorded albuterol sulfate 90 mcg/actuation 2 puff inhalation Q6H PRN 05/08/24 aerosol inhaler cholecalciferol (vitamin D3) 50 50 mcg PO DAILY 05/08/24 mcg (2,000 unit) capsule cyanocobalamin (vitamin B-12) 50 50 mcg PO DAILY 05/08/24 mcg tablet diclofenac sodium 1 % topical gel 2 g topical QID 05/08/24 (Arthritis Pain (diclofenac)) glucose 4 gram chewable tablet 4 g PO Q15M PRN 05/08/24 (Dex4 Glucose) omeprazole 40 mg capsule,delayed 40 mg PO DAILY PRN 07/13/24 release calcium 315 mg (as 1 tab PO BID 10/11/24 citrate)-vitamin D3 5 mcg (200 unit) tablet (Calcium Citrate + D) enalapril maleate 5 mg tablet 5 mg PO DAILY 10/11/24 hydroxyzine HCl 50 mg tablet 50 mg PO BID PRN 10/11/24 lisdexamfetamine 60 mg capsule 60 mg PO DAILY 10/11/24 trazodone 100 mg tablet 100 mg PO DAILY 10/11/24 zolpidem 10 mg tablet 10 mg PO QHS PRN 10/11/24 duloxetine 60 mg capsule,delayed 120 mg PO DAILY 10/20/24 release docusate sodium 100 mg capsule 100 mg PO BID #28 caps 10/25/24 (Colace) lorazepam 0.5 mg tablet 0.5 mg PO DIRECTED PRN 12/04/24 acetaminophen 500 mg tablet 1,000 mg (2 x 500 mg) PO TID #90 12/06/24 tabs metoprolol tartrate 25 mg tablet 25 mg PO DAILY 12/06/24 ferrous fumarate 324 mg (106 mg 324 mg PO DAILY #30 tabs 12/07/24 iron) tablet Held on 02/28/25. Instructions: Adverse Reaction ondansetron 4 mg disintegrating 4 mg PO Q8H PRN #14 tabs 12/07/24 tablet celecoxib 200 mg capsule 200 mg PO BID #60 caps 01/18/25 brexpiprazole 1 mg tablet (Rexulti) 1 mg PO DAILY 02/28/25 quetiapine 25 mg tablet (Seroquel) 25 mg PO QHS 02/28/25 Current Visit Medications: Current Medications Generic Name Dose Route Start Last Admin Trade Name Freq PRN Reason Stop Dose Admin Acetaminophen 1,000 mg 02/28/25 06:00 02/28/25 06:48 Acetaminophen 500 Mg Tab PO 02/28/25 23:59 1,000 mg PREOP ALEXANDER Administration Celecoxib 400 mg 02/28/25 06:00 02/28/25 06:48 Celecoxib 200 Mg Cap PO 02/28/25 23:59 400 mg PREOP ALEXANDER Administration Ringer's Solution 1,000 mls @ 80 mls/hr 02/28/25 06:00 02/28/25 07:00 IV 02/28/25 23:59 80 mls/hr INFUSION ALEXANDER Administration Sodium Chloride 0 ml 02/28/25 06:00 Normal Saline Flush 10 Ml Syr IV 02/28/25 23:59 PRN PRN Sodium Chloride 0 ml 02/28/25 06:00 Normal Saline 10 Ml Vial IJ 02/28/25 23:59 DIRECTED PRN Sterile Water 0 ml 02/28/25 06:00 Water,Injection,Sterile 10 Ml Vial IJ 02/28/25 23:59 DIRECTED PRN PFSH Active Problems Active Problems: Problem Status Onset Code Arthrofibrosis of total knee arthroplasty Acute T84.82XA Anemia Chronic D64.9 History of total right knee replacement Acute 12/06/24 Z96.651 Rupture of right proximal biceps tendon Acute S46.211A Ri ght rotator cuff tear Acute 09/06/23 M75.101 Medical History Medical History Osteoarthritis Morbid (severe) obesity due to excess calories MDD (major depressive disorder) Fibromyalgia Benign hypertensive heart disease without congestive heart failure Weakness TMJ (dislocation of temporomandibular joint) Insomnia GERD (gastroesophageal reflux disease) Left ventricular outflow tract obstruction Rupture of right biceps tendon JAY (generalized anxiety disorder) Trigger finger HTN (hypertension) Anxiety ADD (attention deficit disorder) Depression Tachycardia Per pt. had full wumg-ni-ndkeabi to high dose ADD medication that has since been changed Surgical History Surgical History (Updated 02/28/25 @ 07:08 by SALAZAR Barnett) History of total left knee replacement (10/25/24) H/O gastric bypass 11/06/21 Hx of section x2 Hx of exploratory laparotomy Hx of cholecystectomy History of surgery on wrist Hx of tonsillectomy Tobacco Smoking/Tobacco Use Status: Never Passive smoking exposure: No Alcohol Alcohol Intake: current Alcohol intake frequency: a few times a month Alcohol type: wine and other Substance Use Substance use: Occasionally Substance use type: marijuana 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 Please see original notes in EMR for more complete details. EKG Summary: EKG PATIENT NAME: Kelly Song UNIT #: [id number] ORDERING PROVIDER: Dannielle Kimble M.D. PRIMARY CARE PROVIDER: DONALD FELDMAN DO DATE/TIME OF SERVICE: 11/28/23 0253 : 1970 PERFORMING LOCATION: ER APPROVED REPORT Exam: Resting ECG Reason for Exam: chest pain Patient Location: E HR:87 bpm ECG Measurements Heart Rate 87 AXIS CA 148 P 56 QRSd 76 QRS 11 QT 331 T35 QTc 399 Conclusion Sinus rhythm...normal P axis, V-rate 60- 99 Normal Electrocardiogram <Electronically signed by DANNIELLE KMIBLE MD in [place]> E-Sign Date: 11/28/23 E-Sign Time: 335 ADDENDUM APPROVED REPORT Exam: Resting ECG Reason for Exam: chest pain Patient Location: E HR:87 bpm ECG Measurements Heart Rate 87 AXIS CA 148 P 56 QRSd 76 QRS 11 QT 331 T35 QTc 399 Conclusion Sinus rhythm...normal P axis, V-rate 60- 99 Normal Electrocardiogram I have reviewed and I agree with the emergency room physician's ECG interpretation. Electronically signed by: <Electronically signed by Vivi Gamino M.D. in [place]> 12/02/23 0922 Cosigned by: Anesthesia Assessment and Plan Anesthesia History Personal History: Delayed Emergence Family History: No Family History of Anesthesia Complications Exercise Tolerance Exercise Tolerance: Metabolic Equivalents>4 Cardiac & Pulmonary Exam Cardiac Exam: Normal S1/S2 Heart Sounds Pulmonary Exam: Clear Bilateral Breath Sounds Implantable Cardiac Device Does patient have a Pacemaker or an ICD?: No Airway Exam Known Difficult Airway: No Mallampati Class: 1 Mouth Opening: Normal (> 3cm) Thyromental Distance: Greater than 3 cm Neck Range of Motion: Full ROM Neck Circumference: Thick Teeth Condition: Generalized Poor Dentition and Advised tooth loss possible given current condition (indicate tooth) Airway Comments: multiple missing teeth, mainly 01/19, multiple cracked teeth. Generally poor dentition ASA Classification ASA Score: ASA 3 Emergency Case?: No NPO Status NPO Status: NPO Clears >2 hours, Solids >8 hours Status Status: Negative HCG Anesthesia Plan Resuscitation Status: Full Code Anesthesia Technique: General Anesthesia Airway Planned: Natural Airway Monitors Used: Standard Monitors
--- NOTE | 2025-02-28 07:08 | W.PM.DSUDISC ---
Date of service: 02/28/25 Discharge Plan Disposition Patient Disposition: Home Condition: Good Discharge Details Reason For Visit: OSWALDO ARMENDARIZ Attending Provider: Ousmane To Primary Care Provider: Patricia Mckay Home Meds and New Rx's Prescriptions: Continued albuterol sulfate 90 mcg/actuation HFA aerosol inhaler 2 puff inhalation Q6H PRN cholecalciferol (vitamin D3) 50 mcg (2,000 unit) capsule 50 mcg PO DAILY cyanocobalamin (vitamin B-12) 50 mcg tablet 50 mcg PO DAILY diclofenac sodium [Arthritis Pain (diclofenac)] 1 % gel 2 g topical QID Rx Instructions: apply to single elbow, wrist or hand; for hand includes palm/fingers/back of hand glucose [Dex4 Glucose] 4 gram tablet,chewable 4 g PO Q15M PRN Rx Instructions: until symptoms of low blood sugar are controlled omeprazole 40 mg capsule,delayed release(DR/EC) 40 mg PO DAILY PRN calcium citrate-vitamin D3 [Calcium Citrate + D] 315 mg-5 mcg (200 unit) tablet 1 tab PO BID enalapril maleate 5 mg tablet 5 mg PO DAILY hydroxyzine HCl 50 mg tablet 50 mg PO BID PRN lisdexamfetamine 60 mg capsule 60 mg PO DAILY trazodone 100 mg tablet 100 mg PO DAILY zolpidem 10 mg tablet 10 mg PO QHS PRN duloxetine 60 mg capsule,delayed release(DR/EC) 120 mg PO DAILY celecoxib 200 mg capsule 200 mg PO BID Qty: 60 0RF docusate sodium [Colace] 100 mg capsule 100 mg PO BID Qty: 28 0RF lorazepam 0.5 mg tablet 0.5 mg PO DIRECTED PRN Patient Comments: TAKE 1 TABLET BY MOUTH DAILY NEEDED FOR ANXIETY metoprolol tartrate 25 mg tablet 25 mg PO DAILY acetaminophen 500 mg tablet 1,000 mg PO TID Qty: 90 3RF ferrous fumarate 324 mg (106 mg iron) tablet 324 mg PO DAILY Qty: 30 0RF Patient Comments: nausea/vomiting ondansetron 4 mg tablet,disintegrating 4 mg PO Q8H PRNQty: 14 0RF Rexulti 1 mg tablet 1 mg PO DAILY Patient Comments: TAKE 1 TABLET BY MOUTH DAILY quetiapine [Seroquel] 25 mg tablet 25 mg PO QHS Patient Comments: 1-2 tabs PRN Discharge Instructions Additional Instructions: Knee Manipulation Discharge Instructions Activity: You should begin moving as soon as possible. You may work on flexion but also equally maintain extension. You may bear weight as tolerated, using crutches only for support/comfort. You should apply ice to help with swelling and elevate when possible (especially in the first few days). Dressings: The knee dressing may come down after 48 hours. You may shower and get the wound wet at that time. Medications: - Rarely does this require any stronger pain medications. Please continue your TKR post operative medications (celebrex and acetaminophen) as needed for pain. Follow-up: 7-10 days Stand Alone Forms: Portal Information Referrals: Ousmane To MD [ [facility] STAFF PHYSICIAN, Orthopaedic Surgical] Equipment/Supplies: Partial Weight Bearing Crutches Activity:: Activity as Tolerated Remove Dressings/Wound Care:: 48 hours Shower/Bathe:: 48 hours Diet:: As Tolerated Discharge Orders Discharge Orders: Discharge Order (Routine); Ordered 02/28/25 Ordered By: Armando Coley DS: Diagnosis Discharge Diagnosis (1) Arthrofibrosis of total knee arthroplasty: Status: Acute
--- NOTE | 2025-02-28 07:13 | ROE_ITS ---
Operative Note Operative Note PRE-OP DIAGNOSIS: RIGHT Knee Arthrofibrosis s/p Replacement POST-OP DIAGNOSIS: same PROCEDURE: RIGHT Knee Manipulation Under Anesthesia SURGEON: Ousmane To ANESTHESIA TYPE: General:No Airway Refer to Anesthesia Record ESTIMATED BLOOD LOSS: 0 PATHOLOGY: none sent TOURNIQUET TIME: 0 COMPLICATIONS: None Patient was transported to: PACU Patient's condition: stable Indications: Kelly is a 54 year old female who is s/p knee replacement. Despite diligent work with physical therapy there has been continued stiffness. To assist with mobility, I offered a manipulation under anesthesia. I discussed the risks of the procedure to include bleeding, pain, recurrent stiffness, fracture. Despite these risks, she elects to proceed. Findings: Preoperative flexion = 80 Postoperative flexion = 110 Preoperative extension = 6-7 Postoperative extension = 0 Procedure Description: The patient was greeted in the preoperative holding area. Identity was confirmed and the correct side was identified and marked. The consent was reviewed the patient and signed. History and physical was updated. Kelly was taken back to the operating room. The right side was identified as the correct side. A timeout was performed for safe surgery. A general anesthetic was administered. The knee was then prepped with ChloraPrep and an intra-articular injection of 10 cc of 0.25% bupivacaine was administered. Once a muscle relaxant was fully on board manipulation was performed. Pre- manipulation range of motion was noted. A gentle manipulation was performed first into flexion using a very small lever arm and adding gentle and progressive pressure to the tibia. There is audible and palpable crepitus with improvement in range of motion. This was cycled and repeated multiple times. The leg was then brought into extension and gentle anterior posterior pressure was applied with a supported hand behind the proximal tibia and knee. This was brought back into flexion was once again manipulated with gentle and progressive pressure. Final range of motion numbers were recorded. A Band-Aid was applied to the injection site. She was awakened from anesthesia and taken to the PACU in stable condition. Date of Procedure: 02/28/25
--- NOTE | 2025-02-28 07:14 | W.PREOPHP ---
Assessment and Plan Assessment and plan (1) Arthrofibrosis of total knee arthroplasty: Status: Acute Assessment and plan: Kelly is a 54-year-old female who is almost 3 months status post right knee replacement. She has struggled range of motion but despite her best efforts continues to have restriction in flexion. Therefore, I offered manipulation. I reviewed the surgery with her today. I discussed the risk to include bleeding, swelling, continued stiffness, fracture. Despite these risk, she elects to proceed. History of Present Illness History of Present Illness Chief Complaint: Right knee arthrofibrosis Narrative: Kelly is a 54-year-old female who is status post bilateral knee replacements. Unfortunately, she is struck with her range of motion on the right side. She did have significant contracture about the knee prior to surgery. She is work diligently physical therapy but unfortunately still is limited with flexion and desires to have a manipulation. Please see the previous office note for complete detailed history. She has tried on her own to improve the range of motion but has not been able to. Review of Systems All systems reviewed & are unremarkable except as noted in HPI and below PFSH All Active Problems Arthrofibrosis of total knee arthroplasty (Acute) S/P OSWALDO: 02/28/2025 Anemia (Chronic) History of total right knee replacement (Acute 12/06/24) Rupture of right proximal biceps tendon (Acute) Right rotator cuff tear (Acute 09/06/23) s/p Right shoulder arthroscopy with rotator cuff repair (subscapularis & supraspinatus, extensive debridement, subacromial decompression, and open biceps tenodesis (proximal rupture repair) 11/25/23 Medical History Osteoarthritis Morbid (severe) obesity due to excess calories MDD (major depressive disorder) Fibromyalgia Benign hypertensive heart disease without congestive heart failure Weakness TMJ (dislocation of temporomandibular joint) Insomnia GERD (gastroesophageal reflux disease) Left ventricular outflow tract obstruction Rupture of right biceps tendon JAY (generalized anxiety disorder) Trigger finger HTN (hypertension) Anxiety ADD (attention deficit disorder) Depression Tachycardia Per pt. 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 Housing: apartment Do you feel safe at home: Yes Do you feel safe in your relationship?: Yes Meds Allergies and Home Medications Allergies Allergy/AdvReac Type Severity Reaction Status Date / Time perphenazine (From Trilafon) Allergy Severe Anaphylaxis Verified 02/28/25 06:35 prochlorperazine (From Allergy Severe Anaphylaxis Verified 02/28/25 06:35 Compazine) Home Medications ?Medication ?Instructions ?Recorded ?Confirmed ?Type albuterol sulfate 90 mcg/actuation 2 puff inhalation Q6H PRN 05/08/24 02/28/25 History aerosol inhaler cholecalciferol (vitamin D3) 50 50 mcg PO DAILY 05/08/24 02/28/25 History mcg (2,000 unit) capsule cyanocobalamin (vitamin B-12) 50 50 mcg PO DAILY 05/08/24 02/28/25 History mcg tablet diclofenac sodium 1 % topical gel 2 g topical QID 05/08/24 02/28/25 History (Arthritis Pain (diclofenac)) glucose 4 gram chewable tablet 4 g PO Q15M PRN 05/08/24 02/28/25 History (Dex4 Glucose) omeprazole 40 mg capsule,delayed 40 mg PO DAILY PRN 07/13/24 02/28/25 History release calcium 315 mg (as 1 tab PO BID 10/11/24 02/28/25 History citrate)-vitamin D3 5 mcg (200 unit) tablet (Calcium Citrate + D) enalapril maleate 5 mg tablet 5 mg PO DAILY 10/11/24 02/28/25 History hydroxyzine HCl 50 mg tablet 50 mg PO BID PRN 10/11/24 02/28/25 History lisdexamfetamine 60 mg capsule 60 mg PO DAILY 10/11/24 02/28/25 History trazodone 100 mg tablet 100 mg PO DAILY 10/11/24 02/28/25 History zolpidem 10 mg tablet 10 mg PO QHS PRN 10/11/24 02/28/25 History duloxetine 60 mg capsule,delayed 120 mg PO DAILY 10/20/24 02/28/25 History release docusate sodium 100 mg capsule 100 mg PO BID #28 caps 10/25/24 02/28/25 Rx (Colace) lorazepam 0.5 mg tablet 0.5 mg PO DIRECTED PRN 12/04/24 02/28/25 History acetaminophen 500 mg tablet 1,000 mg (2 x 500 mg) PO TID #90 12/06/24 02/28/25 Rx tabs metoprolol tartrate 25 mg tablet 25 mg PO DAILY 12/06/24 02/28/25 History ferrous fumarate 324 mg (106 mg 324 mg PO DAILY #30 tabs 12/07/24 02/28/25 Rx iron) tablet ondansetron 4 mg disintegrating 4 mg PO Q8H PRN #14 tabs 12/07/24 02/28/25 Rx tablet celecoxib 200 mg capsule 200 mg PO BID #60 caps 01/18/25 02/26/25 Rx brexpiprazole 1 mg tablet (Rexulti) 1 mg PO DAILY 02/28/25 02/28/25 History quetiapine 25 mg tablet (Seroquel) 25 mg PO QHS 02/28/25 02/28/25 History Exam Const General: cooperative, comfortable and no acute distress Resp Effort & Inspection: normal respiratory effort Auscultation: clear to auscultation bilaterally Cardio Rate: tachycardic Rhythm: regular rhythm Extrem Other: Right knee is briefly examined. The incision is well-healed without signs of infection. No significant effusion or swelling. There are some excoriated areas of skin just lateral to the distal aspect of the incision without signs of infection or open, exposed dermis. Results Last Vital Signs Temp 37 C 02/28/25 06:20 Pulse 105 H 02/28/25 06:20 Resp 16 02/28/25 06:20 BP 152/80 H 02/28/25 06:20 Pulse Ox 98 02/28/25 06:20
[2025-02-28] MEDS: Bupivacaine 0.25% Pres-Free 30 ML VIAL (07:39)
--- NOTE | 2025-02-28 08:32 | W.ANESPOSTOP ---
Postoperative Evaluation Date, Time and Location Date Performed: 02/28/25 Time Performed: 08:33 Patient Location: Day Surgery Unit Vital Signs Most Recent Imported Vital Signs: Most Recent Vital Signs Temp Pulse Resp BP Pulse Ox 36.7 C 91 H 16 111/65 98 02/28/25 08:23 02/28/25 08:23 02/28/25 08:23 02/28/25 08:23 02/28/25 08:23 Pain Score Most Recent Pain Score: Most Recent Pain Score Pain Level 0 02/28/25 08:23 Assessment Mental Status: Awake (Alert & Oriented to Patient Baseline) Airway and Respiratory Function: Patent airway with normal (patient baseline) respiratory exam Cardiovascular Function: Hemodynamically Stable Hydration Status: Adequately Hydrated Nausea & Vomiting: No Nausea or Vomiting Pain: Pain is tolerable per patient Peripheral Nerve Block: Patient did not receive a nerve block
== END 2025-02-28 08:38 | disposition home or self-care (01) ==
PROVIDERS: PCP Family Medicine; Visit Provider Student in an Organized Health Care Education/Training Program
PROC: (CPT 27570; principal; 2025-02-28 07:30)
DX: T84.82XA Fibrosis due to internal orthopedic prosthetic devices, implants and grafts, initial encounter (principal); E66.01 Morbid (severe) obesity due to excess calories; D64.9 Anemia, unspecified; I10 Essential (primary) hypertension; K21.9 Gastro-esophageal reflux disease without esophagitis; Z68.43 Body mass index [BMI] 50.0-59.9, adult
CPT/HCPCS: 27570; 81025; J0330; J0665; J2003; J2371; J2405; J2704